=== PATIENT | female | born 1965 | race Two or more races ===

== ENCOUNTER 2020-03-19 10:55 | Outpatient (REF) | payer MEDICAID, SELFPAY ==
--- NOTE | 2020-03-19 10:57 | XR_ITS ---
EXAMINATION: XR SHOULDER, RIGHT CLINICAL INFORMATION: Right shoulder pain. COMPARISON: 11/30/2019 right shoulder radiographs. TECHNIQUE: AP external rotation, Grashey, scapular Y, and axillary views of the right shoulder. FINDINGS: The bones and soft tissues are normal. No fracture. Glenohumeral and acromioclavicular alignment is anatomic with normal joint space. No abnormal soft tissue calcifications. XR/XR shoulder RT min 2V IMPRESSION: Unremarkable right shoulder.
== END 2020-03-19 10:56 | disposition home or self-care (01) ==
LOC: HO.HOSX 10:55
PROVIDERS: Visit Provider Orthopaedic Surgery
DX: M75.41 Impingement syndrome of right shoulder (principal); M25.531 Pain in right wrist
CPT/HCPCS: 73030; 99202; J1040

== ENCOUNTER 2020-06-25 11:10 | Outpatient (REF) | payer MEDICAID, SELFPAY ==
--- NOTE | ~2020-06-25 | MM_ITS ---
EXAMINATION: MM DIAGNOSTIC DIGITAL BREAST TOMOSYNTHESIS, BILATERAL US DIAGNOSTIC ULTRASOUND BREAST, BILATERAL CLINICAL INFORMATION: Recent bilateral breast pain lasting 3-4 days, bilateral palpable fullness. No discharge. No focal palpable mass. Symptoms have subsequently resolved. No pain at time of appointment. The lifetime risk of breast cancer based on the Tyrer-Cuzick Model is 7%. COMPARISON: Mammography: 09/17/2017, 08/10/2016, 07/24/2015 TECHNIQUE: Digital breast tomosynthesis is performed in both the craniocaudal and mediolateral oblique views along with computer-aided detection (CAD). Synthesized 2D images are generated from the tomosynthesis. Ultrasound of each breast is performed targeted to all 4 quadrants. Grayscale imaging and color Doppler are performed without and with harmonics. FINDINGS: The breasts are heterogeneously dense, which may obscure small masses (ACR BI-RADS breast composition Category c). Parenchymal pattern is similar to prior exams. There is no developing density or interval mass or architectural abnormality. No skin thickening or coarsening of the Kasi's ligaments. No abnormal calcifications. No significant changes. Bilateral breast ultrasound shows no cystic or solid mass. There is no architectural abnormality or focal duct ectasia. No skin thickening or edema tracking in soft tissue planes. Results are discussed with the patient at time of visit, using an bakery supervisor. MM/MM tomosynthesis diagnostic BI IMPRESSION: 1. No mammographic evidence of malignancy or inflammatory changes. 2. Unremarkable bilateral breast ultrasound. ASSESSMENT: BI-RADS 1: Negative RECOMMENDATION: 1. Patient's recent breast symptoms should be managed based on the clinical impression. 2. Otherwise, routine annual screening mammography. This patient's information was entered into a reminder system with a target due date for their next mammogram.
== END 2020-06-25 11:11 | disposition home or self-care (01) ==
LOC: HO.MAMMO 11:10
PROVIDERS: Visit Provider Internal Medicine Geriatric Medicine
DX: N64.4 Mastodynia (principal)
CPT/HCPCS: 76642; 77062; 77066

== ENCOUNTER 2020-11-19 09:28 | Outpatient (REF) | payer MEDICAID, SELFPAY ==
--- NOTE | ~2020-11-19 | US_ITS ---
EXAMINATION: US ABDOMEN COMPLETE CLINICAL INFORMATION: Fatty liver. COMPARISON: None TECHNIQUE: Real-time imaging of the abdominal viscera. FINDINGS: PANCREAS: Normal. ABDOMINAL AORTA: The proximal, mid, and distal segments are normal in caliber. INFERIOR VENA CAVA: Visualized portions are normal. LIVER: Normal. The liver is normal in size. The liver contour is normal. Parenchymal echogenicity is normal. No focal hepatic lesion. There is no intrahepatic biliary duct dilatation seen. GALLBLADDER: Normal. The gallbladder is physiologically distended without evidence of stones, sludge, polyps, wall thickening or pericholecystic fluid. COMMON BILE DUCT: Normal in caliber measuring 0.33 cm in diameter. RIGHT KIDNEY: There is normal echogenicity. There is a simple-appearing cyst in the upper pole of the right kidney measuring 3.9 x 3.2 x 3.4 cm. There is a 2.5 cm cyst in the lower pole with some posterior calcifications, suspicious for milk of calcium. There is no hydronephrosis. The kidney measures 11.1 cm in maximum dimension. LEFT KIDNEY: Normal. No hydronephrosis. No renal calculi or focal parenchymal lesions. The kidney measures 11.3 cm in maximum dimension. SPLEEN: Upper normal in size. The spleen measures 13.2 cm in maximum dimension. FREE FLUID: None. US/US abdomen complete IMPRESSION: 1. Unremarkable liver with no evidence of fatty infiltration. 2. Simple-appearing 3.9 cm cyst in the upper pole of the right kidney (Bosniak 1). 2.5 cm cyst in the lower pole with posterior calcifications, suspicious for milk of calcium (Bosniak 2). Imaging followup is not needed.
== END 2020-11-19 09:29 | disposition home or self-care (01) ==
LOC: HO.US 09:28
PROVIDERS: PCP Internal Medicine Geriatric Medicine; Visit Provider Internal Medicine Geriatric Medicine
DX: K76.0 Fatty (change of) liver, not elsewhere classified (principal)
CPT/HCPCS: 76700

== ENCOUNTER 2021-12-30 15:27 | Outpatient (REF) | payer MEDICAID, SELFPAY ==
[2022-01-06 11:42] LABS: HPV mRNA E6/E7 rflx Not Detected (Not Detected)
== END 2021-12-30 15:28 | disposition home or self-care (01) ==
LOC: HO.LNP 15:27
PROVIDERS: Visit Provider Obstetrics & Gynecology
DX: Z01.419 Encounter for gynecological examination (general) (routine) without abnormal findings (principal); Z11.51 Encounter for screening for human papillomavirus (HPV); N95.0 Postmenopausal bleeding; R39.15 Urgency of urination
CPT/HCPCS: 87086; 87088; 87186; 87624; 88142; 99202

== ENCOUNTER 2022-01-16 14:10 | Outpatient (REF) | payer MEDICAID, SELFPAY ==
--- NOTE | ~2022-01-16 | US_ITS ---
EXAMINATION: US PELVIS CLINICAL INFORMATION: Postmenopausal bleeding COMPARISON: None TECHNIQUE: Transabdominal imaging was performed FINDINGS: Uterus: The uterus is anteverted and measures 6.2 x 3.4 x 4.5 cm. The double wall endometrial thickness is 6 mm. The uterus is smooth in contour and has normal myometrial echogenicity. No visible fibroid. Adnexa: Both ovaries are visualized. There is normal color flow to the adnexa. There is no ovarian torsion. There is no pelvic ascites or fluid collection. Right ovary measures 1.7 x 1.3 x 2.0 cm. Left ovary measures 2.4 x 1.2 x 2.0 cm. US/US pelvic and transvaginal IMPRESSION: Thickened endometrium measuring 6 mm in a postmenopausal patient. Recommend gynecologic consult and endometrial biopsy.
== END 2022-01-16 14:11 | disposition home or self-care (01) ==
LOC: HO.HMGCX 14:10
PROVIDERS: PCP Internal Medicine Geriatric Medicine; Visit Provider Obstetrics & Gynecology
DX: N95.0 Postmenopausal bleeding (principal)
CPT/HCPCS: 76830; 76856

== ENCOUNTER 2022-02-03 13:40 | Outpatient (REF) | payer MEDICAID, SELFPAY | END 2022-02-03 13:41 | disposition home or self-care (01) | LOC: HO.LNP 13:40 | PROVIDERS: PCP Internal Medicine Geriatric Medicine; Visit Provider Obstetrics & Gynecology | DX: N95.0 Postmenopausal bleeding (principal) | CPT/HCPCS: 58100; 88305 ==

== ENCOUNTER 2022-02-09 14:13 | Outpatient (REF) | payer MEDICAID, SELFPAY | END 2022-02-09 14:14 | disposition home or self-care (01) | LOC: HO.LNP 14:13 | PROVIDERS: PCP Internal Medicine Geriatric Medicine; Visit Provider Obstetrics & Gynecology | DX: N87.0 Mild cervical dysplasia (principal); N95.0 Postmenopausal bleeding | CPT/HCPCS: 57454; 58100; 58110; 88305; 88341; 88342; 88360 ==

== ENCOUNTER → 2022-02-23 13:06 | Outpatient (BNVA) | payer MEDICAID, SELFPAY | PROVIDERS: PCP Internal Medicine Geriatric Medicine; Visit Provider Obstetrics & Gynecology | DX: N87.0 Mild cervical dysplasia (principal); N95.0 Postmenopausal bleeding | CPT/HCPCS: 99212 ==

== ENCOUNTER 2022-03-06 09:40 | Day surgery (SDC) | payer MEDICAID, SELFPAY ==
[2022-03-02 11:33] VITALS: BMI 33.3
--- NOTE | 2022-03-05 09:15 | HO.ANESPROP2 ---
Documented by User: Janny Tripathi NP 03/05/22 09:15 HPI - Anesthesia Eval Consult details Narrative: 56yo F for D&C Hysteroscopy,poss polypectomy/myomectomy PMFSH Active Problems Active Problems: All Active Problems (Updated 03/02/22 @ 11:30 by Cassandra Huston RN) Rotator cuff impingement syndrome of right shoulder (Acute) Postmenopausal bleeding (Acute) Urinary urgency (Acute) Dysplasia of cervix, low grade (OLIVER 1) (Acute) Past Medical History Medical History Asthma Elevated cholesterol Hyperglycemia Hypertension Rotator cuff impingement syndrome of left shoulder Seizure Type 2 diabetes mellitus Surgical History Surgical History Gastric bypass status for obesity H/O tubal ligation Hx of section Social History Social History Are you a primary clinical care coordinator to a significant other at home: No Do you presently have visiting nurse or other home services: No Patient Tobacco Use Status: Never used Tobacco Use of substances other than those prescribed or required for medical reasons: No Have you been hit, kicked, punched, or otherwise hurt by someone within the past year? 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 Allergies Allergy/AdvReac Type Severity Reaction Status Date / Time No Known Allergies Allergy Verified 03/06/22 09:53 Home Medications Medication Instructions Recorded Confirmed Last Taken Type atorvastatin 20 mg tablet 20 mg PO DAILY 02/23/20 03/02/22 Unknown History carbamazepine 300 mg 300 mg PO BID 02/23/20 03/06/22 03/06/22 08:00 History capsule,extended release [id number] cyclobenzaprine 10 mg tablet 10 mg PO BEDTIME 02/23/20 03/02/22 Unknown History hydroxyzine HCl 25 mg tablet 25 mg PO BEDTIME 02/23/20 03/02/22 Unknown History metformin 500 mg tablet 500 mg PO DAILY 02/23/20 03/06/22 03/05/22 History cholecalciferol (vitamin D3) 50 1 cap PO DAILY 03/02/22 03/02/22 Unknown History mcg (2,000 unit) capsule dulaglutide 1.5 mg/0.5 mL 1.5 mg subcut QWEEK 03/02/22 03/06/22 03/02/22 History subcutaneous pen injector (Trulicity) losartan 25 mg tablet 1 tab PO DAILY blood pressure 03/02/22 03/06/22 03/05/22 History Exam Exam Date and Time: March 05, 2022 0915 Height,Weight and Vital Signs: Height 5 ft 2 in Weight 82.554 kg Assessment and Plan Assessment Anesthesia Assessment: Chart Reviewed Documented by User: Yolanda Helms MD 03/06/22 10:08 [facility] Past Medical History Medical History Asthma Elevated cholesterol Hyperglycemia Hypertension Rotator cuff impingement syndrome of left shoulder Seizure Type 2 diabetes mellitus Surgical History Surgical History Gastric bypass status for obesity H/O tubal ligation Hx of section History of Problems with Anesthesia: No Social History Social History Are you a primary clinical care coordinator to a significant other at home: No Do you presently have visiting nurse or other home services: No Patient Tobacco Use Status: Never used Tobacco Use of substances other than those prescribed or required for medical reasons: No Have you been hit, kicked, punched, or otherwise hurt by someone within the past year? 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 Allergies Allergy/AdvReac Type Severity Reaction Status Date / Time No Known Allergies Allergy Verified 03/06/22 09:53 Home Medications Medication Instructions Recorded Confirmed Last Taken Type atorvastatin 20 mg tablet 20 mg PO DAILY 02/23/20 03/02/22 Unknown History carbamazepine 300 mg 300 mg PO BID 02/23/20 03/06/22 03/06/22 08:00 History capsule,extended release [id number] cyclobenzaprine 10 mg tablet 10 mg PO BEDTIME 02/23/20 03/02/22 Unknown History hydroxyzine HCl 25 mg tablet 25 mg PO BEDTIME 02/23/20 03/02/22 Unknown History metformin 500 mg tablet 500 mg PO DAILY 02/23/20 03/06/22 03/05/22 History cholecalciferol (vitamin D3) 50 1 cap PO DAILY 03/02/22 03/02/22 Unknown History mcg (2,000 unit) capsule dulaglutide 1.5 mg/0.5 mL 1.5 mg subcut QWEEK 03/02/22 03/06/22 03/02/22 History subcutaneous pen injector (Trulicity) losartan 25 mg tablet 1 tab PO DAILY blood pressure 03/02/22 03/06/22 03/05/22 History Exam Airway Mallampati Class: II TM Dist: >3cm Neck ROM: Full Loose/Missing/Broken Teeth: No Heart: RRR Lungs: CTA Assessment and Plan Assessment Anesthesia Assessment: Anesthesia Plan Discussed Final Anesthetic Review History of Problems with Anesthesia: No NPO: Yes ASA Class: II Final Preanesthetic Review: Meds/Allgs Chart Reviewed, Consent Obtained/Reviewed and Anes Risks/Benef Reviewed Patient Risk: Low Procedure Risk: Low Anesthetic Plan Anesthetic Plan: GA Disposition: Standard PACU
[2022-03-06] VITALS (8 sets, daily range): BP systolic 137–154; BP diastolic 85–99; PULSE 77–85; RESP 16; TEMP 36.6; O2SAT 93–98
[2022-03-06 10:05] LABS: Glucose, Whole Blood 109 mg/dL (60-115)
[2022-03-06] MEDS: Lactated Ringers 1,000 ML 100 ML IVCONT (10:07)
--- NOTE | 2022-03-06 11:04 | MHC.SHP ---
Pre-Procedural Eval Section A Date of Service: 03/06/22 The patient is an INPATIENT: No Changes since office visit: No Cold of Flu in the past 2 weeks, No New Medical Problems, No Changes in Medication and No Patient answered all questions The History & Physical has been completed within 30 days and I have reviewed it.: Yes Section B Chief Complaint: Postmenopausal bleeding,Mild cervical dysplasia Allergies: Allergies Allergy/AdvReac Type Severity Reaction Status Date / Time No Known Allergies Allergy Verified 03/06/22 09:53 Plan Diagnosis/Plan: Unchanged I have reviewed the history and physical and performed a pertinent physical examination on my patient. No changes have occurred unless specified. Time Spent With Patient Time: Total time managing care of this patient today ____ minutes.
--- NOTE | 2022-03-06 11:24 | P.BOP_ITS ---
Brief Operative Note Date of Service: 03/06/22 Pre-op diagnosis: Post Menopaual bleeding Post-op diagnosis: same Procedure: Hysteroscopy D&C Surgeon: Saul Dobbins MD Anesthesia: GLMA Was an Financial Services Professional used for this Procedure?: No Estimated blood loss (mL): 0 Pathology: other (Endometrial Scrapping) Condition: stable Disposition: PACU
--- NOTE | 2022-03-06 11:24 | W.PM.OPN ---
Operative Note Operative Note Date of Service: 03/06/22 Narrative: Preop Diagnosis: Post Menopausal bleeding Operation: Diagnostic Hysteroscopy, Dilataion & Curettage Post Op Diagnosis: Normal endometrial cavity QBL: Minimal Anesthesia: GLMA Surgeon: Saul Dobbins MD [employer] Consultant: None Complication: None Pathology: Endometrial Scrapings Procedure: The patient was put in the dorsal lithotomy position, scrubbed, and draped in the usual manner. A sterile speculum was inserted in the patient's vagina. The anterior lip of the cervix was grasped with a single tooth tenaculum. The cervix was dilated up to 5 mm, then the scope was inserted in the patient's uterus. Inspection revealed Normal endometrial cavity. The Myosure Reach device was used; the scope was removed from the endometrial cavity , sharp curettings was carried on with minimal to moderate amount of tissues retrieved. At the end of the procedure, all instruments were taken out of the patient uterine and vaginal cavity. The single tooth tenaculum was removed and homeostasis was assured using pressure,. The patient tolerated the procedure well and was transferred to the PACU in a stable condition.
== END 2022-03-06 13:04 | disposition home or self-care (01) ==
PROVIDERS: PCP Internal Medicine Geriatric Medicine; Visit Provider Obstetrics & Gynecology
PROC: 0UDB8ZZ Extraction of Endometrium, Via Natural or Artificial Opening Endoscopic (ICD-10-PCS; CPT 58558; principal; 2022-03-06 11:40)
DX: N95.0 Postmenopausal bleeding (principal); N87.0 Mild cervical dysplasia; R56.9 Unspecified convulsions; J45.909 Unspecified asthma, uncomplicated; I10 Essential (primary) hypertension; E11.9 Type 2 diabetes mellitus without complications; Z79.85 Long-term (current) use of injectable non-insulin antidiabetic drugs; Z79.899 Other long term (current) drug therapy; Z98.84 Bariatric surgery status; Z98.51 Tubal ligation status
CPT/HCPCS: 58558; 82947; 88305; J1100; J1885; J2250; J2405; J3010

== ENCOUNTER → 2022-03-25 12:39 | Outpatient (BNVA) | payer MEDICAID, SELFPAY | PROVIDERS: PCP Internal Medicine Geriatric Medicine; Visit Provider Obstetrics & Gynecology | DX: N95.0 Postmenopausal bleeding (principal); Z98.890 Other specified postprocedural states | CPT/HCPCS: 99212 ==

== ENCOUNTER 2023-01-08 10:48 | Outpatient (REF) | payer MEDICAID, SELFPAY ==
[2023-01-08 12:27] LABS: Anion Gap 13 (12-20); Blood Urea Nitrogen 13 mg/dL (9-16); Calcium 10.4 mg/dL (8.4-10.2); Carbon Dioxide 27 mmol/L (22-29); Chloride 105 mmol/L (96-108); Estimated Glomerular Filt Rate > 60; Glucose Random 85 mg/dL (60-115); Potassium 4.5 mmol/L (3.3-5.1); Sodium 140 mmol/L (135-145)
[2023-01-08 13:05] LABS: Creatinine Urine 76.27 mg/dL; Microalbumin Urine < 5.0 mg/L
[2023-01-10 20:13] LABS: TS Negative Control Passed; TS Panel A 0; TS Panel B 0; TS Positive Control Passed; TSpotTB Negative (Negative)
== END 2023-01-08 10:49 | disposition home or self-care (01) ==
LOC: HO.HHCL 10:48
PROVIDERS: Visit Provider Internal Medicine Geriatric Medicine
DX: Z11.1 Encounter for screening for respiratory tuberculosis (principal); E11.69 Type 2 diabetes mellitus with other specified complication
CPT/HCPCS: 36415; 80048; 82043; 82570; 86481

== ENCOUNTER 2023-05-17 10:17 | Outpatient (AMB) | payer MEDICAID, SELFPAY ==
--- NOTE | 2023-05-17 10:28 | A.OFFVIS_ITS ---
Intake Vital Signs 05/17/23 10:29 Height 5 ft 2 in Weight 182 lb BMI 33.3 BP 110/70 Intake Visit Reasons: Urine dip Haulage Engine Operator Required: Yes Haulage Engine Operator Name: Danielle MULTANI Information Interpreted: non-clinical & clinical Stereo Compiler: Stereo Compiler Present (Danielle MULTANI) Accompanied by: Self / Same As Patient Allergies No Known Allergies Allergy (Verified 05/17/23 10:31) Post menopausal: Yes Patient : No HPI HPI Comments History of Present Illness0 Details Presenting for co testing and repeat urine dip. Microscopic hematuria was identified, urine culture was negative . OLIVER 1 was diagnosed on EMB pathol ogy, this was followed with colpo/biopsy/ECC which was negative. Last co testing was in 01/10 was negative. The patient is doing well with no vaginal bleeding. 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 Female Reproductive History Menstrual Age of Menarche: 11 Review of Systems Const All systems reviewed & are unremarkable except as noted in HPI and below Card Reports as per HPI Resp Reports as per HPI GI Reports as per HPI and Reports no additional complaints Reports as per HPI Physical Exam Vital Signs: Last Vital Signs BP 110/70 05/17/23 10:29 BMI result Body Mass Index 33.3 Const General: cooperative, healthy appearing and comfortable Chest Chest palpation & inspection: normal inspection of the chest and normal palpation of entire chest wall Breast/axilla inspection: normal inspection of the breasts and normal inspection of the axillae Breast/axilla palpation: normal palpation of the breasts, normal palpation of the axillae and no axillary lymphadenopathy Resp Effort & Inspection: normal respiratory effort Auscultation: clear to auscultation bilaterally Percussion: percussion normal Cardio Palpation: normal PMI Rate: regular rate Rhythm: regular rhythm Heart sounds: no murmurs and no rubs Peripheral pulses: Peripheral pulses 2+ throughout GI Inspection: Yes normal to inspection Palpation (GI): Soft to palpation, nontender, no guarding, not rigid and No hepatosplenomegaly present Percussion: Yes normal to percussion Auscultation: normal bowel sounds Rectal Exam - Female: deferred General: Yes bladder normal to palpation External Female Exam: No lesion Speculum Exam - Vagina: normal appearance of the vagina, normal palpation, normal vaginal discharge and not erythematous Speculum Exam - Cervix: normal appearance of the cervix and normal palpation Bimanual exam- vagina & uterus: normal bimanual exam, normal palpation, uterine size normal, bladder normal to palpation, consistency normal and normal palpation Bimanual Exam- Adnexa, other: normal adnexae, no masses and no tenderness Assessment & Plan Assessment & Plan (1) Dysplasia of cervix, low grade (OLIVER 1): Comment: On EMB/ECC in 02/10 , normal co testing Code(s): N87.0 - Mild cervical dysplasia Plan: Co testing repeated preop (2) Well woman exam: Code(s): Z01.419 - Encounter for gynecological examination (general) (routine) without abnormal findings Plan: Co testing done. Counseled the patient about the recommended dietary allowance of 1200 mg of Calcium & 600 IU of vitamin D. Mammogram ordered. The patient was referred to GI for screening colonoscopy . The patient was instructed to perform monthly self-breast exams and schedule annual exam in a year. All questions answered and the patient verbalized understanding. (3) Microscopic hematuria: Code(s): R31.29 - Other microscopic hematuria Plan: Urine dip repeated showed no evidence of microscopic hematuria, the patient was reassured. Orders: Orders MM tomosynthesis screening BI Today Z12.31 - Encounter for screening mammogram for malignant neoplasm of breast Referrals Gastroenterology Referral Z12.11 - Encounter for screening for malignant neoplasm of colon Coding Level of Care Code Est Pt Prev Care 40-64y(06722) Diagnoses Dysplasia of cervix, low grade (OLIVER 1) N87.0 Well woman exam Z01.419 Microscopic hematuria R31.29
[2023-05-17 10:29] VITALS: BP 110/70; BMI 33.3
== END 2023-05-17 11:16 | disposition home or self-care (01) ==
LOC: HO.HWS 10:17
PROVIDERS: PCP Internal Medicine Geriatric Medicine; Visit Provider Obstetrics & Gynecology
DX: Z01.419 Encounter for gynecological examination (general) (routine) without abnormal findings (principal); N87.0 Mild cervical dysplasia; R31.29 Other microscopic hematuria
CPT/HCPCS: 99396

== ENCOUNTER 2023-05-17 10:17 | Outpatient (REF) | payer MEDICAID, SELFPAY ==
[2023-05-23 11:04] LABS: HPV mRNA E6/E7 rflx Not Detected (Not Detected)
== END 2023-05-17 10:18 | disposition home or self-care (01) ==
LOC: HO.LNP 10:17
PROVIDERS: PCP Internal Medicine Geriatric Medicine; Visit Provider Obstetrics & Gynecology
DX: Z01.419 Encounter for gynecological examination (general) (routine) without abnormal findings (principal); Z11.51 Encounter for screening for human papillomavirus (HPV); N87.0 Mild cervical dysplasia; R31.29 Other microscopic hematuria
CPT/HCPCS: 81002; 87624; 88142; 99396

== ENCOUNTER 2023-06-18 09:55 | Outpatient (REF) | payer MEDICAID, SELFPAY | END 2023-06-18 09:56 | disposition home or self-care (01) | LOC: HO.MAMMO 09:55 | PROVIDERS: PCP Internal Medicine Geriatric Medicine; Visit Provider Obstetrics & Gynecology | DX: Z12.31 Encounter for screening mammogram for malignant neoplasm of breast (principal) | CPT/HCPCS: 77063; 77067 ==

== ENCOUNTER → 2023-06-18 10:00 | Outpatient (BNV) | payer MEDICAID, SELFPAY | PROVIDERS: PCP Internal Medicine Geriatric Medicine; Visit Provider Radiology Diagnostic Radiology | DX: Z12.31 Encounter for screening mammogram for malignant neoplasm of breast (principal) | CPT/HCPCS: 77063; 77067 ==

== ENCOUNTER 2023-06-29 10:33 | Outpatient (REF) | payer MEDICAID, SELFPAY ==
[2023-06-29 12:39] LABS: Alanine Aminotransferase 25 U/L (0-31); Albumin Level 4.1 g/dL (3.5-5.0); Alkaline Phosphatase 81 U/L (39-117); Anion Gap 12 (12-20); Aspartate Amino Transferase 24 U/L (5-31); Bilirubin Total 0.4 mg/dL (0.0-1.0); Blood Urea Nitrogen 13 mg/dL (9-16); Calcium 9.7 mg/dL (8.4-10.2); Carbon Dioxide 27 mmol/L (22-29); Chloride 108 mmol/L (96-108); Cholesterol 236 mg/dL (<200); Estimated Glomerular Filt Rate > 60; Glucose Random 85 mg/dL (60-115); HDL Cholesterol 48 mg/dL (>40); LDL Cholesterol Calculated 162 mg/dL (<100); Potassium 4.5 mmol/L (3.3-5.1); Sodium 142 mmol/L (135-145); Total Protein 7.8 g/dL (6.5-8.0); Triglycerides 134 mg/dL (<150)
[2023-06-29 13:05] LABS: Creatinine Urine 85.72 mg/dL; Microalbumin Urine < 5.0 mg/L
== END 2023-06-29 10:34 | disposition home or self-care (01) ==
LOC: HO.LAB 10:33
PROVIDERS: PCP Internal Medicine Geriatric Medicine; Visit Provider Internal Medicine Geriatric Medicine
DX: E11.69 Type 2 diabetes mellitus with other specified complication (principal)
CPT/HCPCS: 36415; 80053; 80061; 82043; 82570

== ENCOUNTER 2023-12-22 12:17 | Outpatient (REF) | payer MEDICAID, SELFPAY ==
[2023-12-25 00:34] LABS: TS Negative Control Passed; TS Panel A 0; TS Panel B 0; TS Positive Control Passed; TSpotTB Negative (Negative)
== END 2023-12-22 12:18 | disposition home or self-care (01) ==
LOC: HO.HHCL 12:17
PROVIDERS: Visit Provider Internal Medicine Geriatric Medicine
DX: Z11.1 Encounter for screening for respiratory tuberculosis (principal)
CPT/HCPCS: 36415; 86481

== ENCOUNTER 2024-01-04 14:56 | Outpatient (REF) | payer MEDICAID, SELFPAY ==
--- NOTE | ~2024-01-04 | XR_ITS ---
EXAMINATION: XR CHEST CLINICAL INFORMATION: Cough. COMPARISON: October 10, 2018. TECHNIQUE: 2 views of the chest were obtained. FINDINGS: Small, patchy right upper lobe density suggests atelectasis, fibrotic streaks, and/or infiltrate, not evident in 2019. The left lung appears clear. No effusion or pneumothorax is seen. The cardiovascular structures and mediastinum appear unremarkable. Mildly elevated right hemidiaphragm, unchanged. Mild degenerative changes of the spine. Surgical clips project over the anterior upper abdomen to the left of midline, unchanged. XR/XR chest 2V IMPRESSION: Findings as above. Electronically signed by: Travis Foreman MD 01/04/2024 05:01 PM EDT
== END 2024-01-04 14:57 | disposition home or self-care (01) ==
LOC: HO.HHCX 14:56
PROVIDERS: Visit Provider Internal Medicine
DX: R05.9 Cough, unspecified (principal)
CPT/HCPCS: 71046

== ENCOUNTER 2024-02-23 10:46 | Outpatient (REF) | payer MEDICAID, SELFPAY ==
--- NOTE | ~2024-02-23 | XR_ITS ---
EXAMINATION: XR CHEST CLINICAL INFORMATION: Previously described upper lobe infiltrate, ensure resolution. COMPARISON: Most recent chest radiograph dated 01/04/2024. TECHNIQUE: 2 views of the chest were obtained. FINDINGS: Resolution of previously seen right upper lobe airspace opacity. No new airspace consolidation. No pleural effusion or pneumothorax. Stable cardiomediastinal silhouette. Right upper quadrant surgical clips. XR/XR chest 2V IMPRESSION: Resolution of previously seen right upper lobe airspace opacity. Electronically signed by: Brett Hall MD 02/24/2024 11:37 AM [facility]
== END 2024-02-23 10:47 | disposition home or self-care (01) ==
LOC: HO.HHCX 10:46
PROVIDERS: Visit Provider Internal Medicine
DX: J45.21 Mild intermittent asthma with (acute) exacerbation (principal)
CPT/HCPCS: 71046

== ENCOUNTER → 2024-04-11 10:36 | Outpatient (REF) | payer MEDICAID, SELFPAY | LOC: HO.SL 10:36 | PROVIDERS: PCP Internal Medicine Geriatric Medicine; Visit Provider Internal Medicine Geriatric Medicine | DX: R06.83 Snoring (principal); R40.0 Somnolence; G47.10 Hypersomnia, unspecified | CPT/HCPCS: 95806 ==

== ENCOUNTER → 2024-04-11 19:00 | Outpatient (BNV) | payer MEDICAID, SELFPAY | PROVIDERS: PCP Internal Medicine Geriatric Medicine; Visit Provider Internal Medicine | DX: R06.83 Snoring (principal); G47.10 Hypersomnia, unspecified | CPT/HCPCS: 95806 ==

== ENCOUNTER 2024-04-26 10:19 | Outpatient (REF) | payer MEDICAID, SELFPAY ==
[2024-04-26 10:57] LABS: MANUAL DIFF FLAG NO
[2024-04-26 11:02] LABS: Basophils Absolute Auto 0.1 X10*3/uL (0.0-0.2); Basophils Percent Auto 0.7 % (0-2); Eosinophils Absolute Auto 0.3 X10*3/uL (0.0-0.4); Hematocrit 41.1 % (37.0-47.0); Imm Gran Abs Auto 0.02 X10*3/uL (0.00-0.03); Imm Gran Pct Auto 0.3 % (0.0-0.4); Lymphocytes Absolute Auto 2.6 X10*3/uL (1.2-4.9); Lymphocytes Percent Auto 34.4 % (20-40); Mean Corpuscular HGB Conc 34.1 g/dl (31.0-35.0); Mean Corpuscular Hemoglobin 28.1 pg (27.0-33.0); Mean Corpuscular Volume 82.5 fL (80.0-98.0); Mean Platelet Volume 10.2 fL (9.4-12.3); Monocytes Absolute Auto 0.4 X10*3/uL (0.1-1.2); Monocytes Percent Auto 5.8 % (2-11); Neutrophils Absolute Auto 4.1 x10*3/uL (2.0-8.3); Neutrophils Percent Auto 54.8 % (45-73); Platelet Count 281 X10*3/uL (160-400); Red Blood Count 4.98 X10*6/uL (4.20-5.50); Red Cell Distribution Width 13.2 % (11.0-16.0); White Blood Count 7.5 X10*3/uL (4.8-10.8)
--- OUTSIDE RECORDS SUMMARY | 2024-04-26 11:16 | XMS_ITS | Encounter Summary ---
Author Organization [employer] Address [address] [place] [address] Care Team Providers Care Administration Clerk Name Role Phone Name, Fernandez BROWN Primary Care Provider Reason for Visit * Reason Onset Date Comments feb recalls 03/30/2024 Encounter Details Date Type Department Care Team ([facility] st Contact Info) Description 03/30/2024 Telephone [facility] [address] [place] [address] Arturo Osborne MA apr recalls Social History Tobacco Use Types Packs/Day Years Used Date Smoking Tobacco: Never Passive Smoke Exposure: Never Smokeless Tobacco: Never Alcohol Use Standard Drinks/Week Comments Never 0 (1 standard drink = 0.6 oz pur e alcohol) occasional Depression Answer Date Recorded Patient Health Questionnaire-9 Score 5 09/04/2022 Housing Stability Answer Date Recorded What is your housing situation today? I have bobby alcantar 01/05/[address] you li ve. Do you have problems with any of the following? None of the above 01/05/2023 Food Insecurity Answer Date Recorded Within the past 12 months, y ou worried that your food would run out before you got money to buy more: Never True 01/05/2023 Within the past 12 months,th e food you bought just didn't last and you didn't have enough money to get more: Never True Transportation Answer Date Recorded In the past 12 months, has l ack of transportation kept you from medical appts, meetings, work or from getting things needed for daily living? No 01/05/2023 Utilities Answer Date Recorded In the past 12 months, has t he electric, gas, oil or water company threatened to shut off services in your home? No 01/05/2023 Depression Answer Date Recorded Patient Health Questionnaire-2 Score 1 12/22/2023 Comments Unknown Sex and Gender Information Value Date Recorded Sex Assigned at Female 01/19/2022 10:29 AM EDT Legal Sex Female 10:29 AM EDT Gender Identity Female 01/19/2022 10:29 AM EDT Sexual Orientation Straight 01/19/2022 10 :29 AM EDT documented as of this encounter Miscellaneous Notes * Telephone Encounter - Arturo Osborne MA - 03/30/2024 11:46 AM EST T/C placed to pt. Scheduled recall. Pt agrees with plan. Reminder letter sent . documented in this encounter Plan of Treatment Upcoming Encounters Date Type Department Care Team (Late st Contact Info) Description 06/09/2024 11:30 AM EDT Office Visit [facility] [address] [place] [address] Name, MD Fernandez [address] [place] [address] documented as of this encounter Visit Diagnoses Not on filedocumented in this encounter Additional Health Concerns Assessment Noted Time PHQ-9 Depression Total Score: 5 09/05/19 23 10:02 AM EDT documented as of this encounter Care Teams Administration Clerk Relationship Specialty Start Date End Date NameFernandez MD [address] [place] [id number] PCP - General Family Medicine 07/19/15 documented as of this encounter
--- OUTSIDE RECORDS SUMMARY | 2024-04-26 11:16 | XMS_ITS | Encounter Summary ---
Author Organization [facility] Address [address] [place] [address] Care Team Providers Care Ambulance Assistant Name Role Phone Name, Fernandez BROWN Primary Care Provider Unavailabl e Encounter Details Date Type Department Care Team Description 04/11/2010 Manager Lean Report Medical Records [address] [place] [address] Kylah Roland NP Social History Tobacco Use Types Packs/Day Years Used Date Smoking Tobacco: Never Alcohol Use Standard Drinks/Week Comments No 0 (1 standard drink = 0.6 oz pur e alcohol) Sex Assigned at Date Recorded Not on file documented as of this encounter Plan of Treatment Not on file documented as of this encounter Visit Diagnoses Not on filedocumented in this encounter Care Teams Ambulance Assistant Relationship Specialty Start Date End Date Name, MD Fernandez PCP - General 10/10/09 documented as of this encounter
--- OUTSIDE RECORDS SUMMARY | 2024-04-26 11:16 | XMS_ITS | Encounter Summary ---
Author Organization [facility] Address [address] [place] [address] Care Team Providers Care Supervisor Roving Department Name Role Phone Name, Fernandez BROWN Primary Care Provider Unavailabl e Encounter Details Date Type Department Care Team Description 04/08/2011 Toll Test Desk Worker Report Medical Records [address] [place] [address] Kylah Roland NP Social History Tobacco Use [...] on filedocumented in this encounter Care Teams Supervisor Roving Department Relationship Specialty Start Date End Date Name, MD Fernandez PCP - General 10/10/09 documented as of this encounter
--- OUTSIDE RECORDS SUMMARY | 2024-04-26 11:16 | XMS_ITS | Encounter Summary ---
Author Organization [employer] [facility] Address [address] [facility] 7t [place] [address] Care Team Providers Care Crusher Assembler Name Role Phone Name, Fernandez BROWN Primary Care Provider [phone] Encounter Details Date Type Department Care Team (Late Contact Info) Description 12/15/2022 Orders Only [facility] [address] [place] [address] Provider, MD Lizette Social History Tobacco Use Types Packs/Day Years Used Date Smoking Tobacco: Never Passive Smoke Exposure: Never Smokeless Tobacco: Never Alcohol Use Standard Drinks/Week Comments Never 0 (1 standard drink = 0.6 oz pur e alcohol) occasional Depression Answer Date Recorded Patient Health Questionnaire-9 Score 5 09/04/2022 Depression Answer Date Recorded Patient Health Questionnaire-2 Score 2 09/04/2022 Comments Unknown Sex and Gender Information Value Date Recorded Sex Assigned at Female 01/19/2022 10:29 AM EDT Legal Sex Female 10:29 AM EDT Gender Identity Female 01/19/2022 10:29 AM EDT Sexual Orientation Straight 01/19/2022 10 :29 AM EDT documented as of this encounter Plan of Treatment Upcoming Encounters Date Type Department Care Team (Late st Contact Info) Description 06/09/2024 11:30 AM EDT Office Visit [facility] [address] [place] [address] Name, MD Fernandez [address] [place] [address] documented as of this encounter Procedures Procedure Name Priority Date/Time Associated Diagnosis Comments HM PAP/HPV Routine 12/30/2021 documented in this encounter Results * Hm Pap Smear (12/30/2021) us Historical Provider HEALTH MAINTENANCE Final Result documented in this encounter Visit Diagnoses Not on filedocumented in this encounter Additional Health Concerns Assessment Noted Time PHQ-9 Depression Total Score: 5 09/05/19 23 10:02 AM EDT documented as of this encounter Care Teams Crusher Assembler Relationship Specialty Start Date End Date Name, MD Fernandez [address] [place] [address] PCP - General Family Medicine 07/19/15 documented as of this encounter
--- OUTSIDE RECORDS SUMMARY | 2024-04-26 11:16 | XMS_ITS | Encounter Summary ---
Author Organization [facility] Address [address] [place] [address] Care Team Providers Care Brim Blocker Name Role Phone Fernandez Stafford MD Primary Care Provider Unavailabl e Encounter Details Date Type Department Care Team Description 10/22/2014 Pt. Non Urgent Medic al Question Adult Medicine [address] [address] Fernandez Stafford MD Social History Tobacco Use Types Packs/Day Years Used Date Smoking Tobacco: Never Smokeless Tobacco: Never Alcohol Use Standard Drinks/Week Comments No 0 (1 standard drink = 0.6 oz pur e alcohol) Sex Assigned at Date Recorded Not on file documented as of this encounter Progress Notes * Yas Lagos M.A. - 10/22/2014 2:12 PM EDTFrom: Edwina Toy To: Fernandez Stafford MD Sent: 10/22/2014 2:04 PM EDT Subject: Diabete ,la presente es para gabriel si me puede gabriel ,parece que la diabetes ya me llego ,cuando me tomola az??car en ayuna sale candelario lesa,necesito vincent consulta,por favor si puede por la tarde,muy apreciada,kai anticipadas. documented in this encounter Plan of Treatment Not on file documented as of this encounter Visit Diagnoses Not on filedocumented in this encounter Care Teams Brim Blocker Relationship Specialty Start Date End Date Fernandez Stafford MD PCP - General 10/10/09 documented as of this encounter
--- OUTSIDE RECORDS SUMMARY | 2024-04-26 11:16 | XMS_ITS | Encounter Summary ---
Author Organization [employer] Address [address] [facility] 7t [place] [address] Care Team Providers Care Senior Quality Engineer Name Role Phone Name, Fernandez BROWN Primary Care Provider [phone] Reason for Visit * Reason Comments Med Refill Encounter Details Date Type Department Care Team ([facility] st Contact Info) Description 03/25/2024 Refill [facility] [address] [place], [place] [phone] Name, MD Fernandez [address] [place], [place] [phone] Hypercholesterolemia Social History Tobacco Use Types Packs/Day Years [...] Description 06/09/2024 11:30 AM EDT Office Visit [facility] [address] [place] [address] Name, MD Fernandez [address] [place] [address] documented as of this encounter Visit Diagnoses Diagnosis Hypercholesterolemia Pure hypercholesterolemia documented in this encounter Additional Health Concerns Assessment Noted Time PHQ-9 Depression Total Score: 5 09/05/19 23 10:02 AM EDT documented as of this encounter Care Teams Senior Quality Engineer Relationship Specialty Start Date End Date Name, MD Fernandez [address] [place] [address] PCP - General Family Medicine 07/19/15 documented as of this encounter
--- OUTSIDE RECORDS SUMMARY | 2024-04-26 11:16 | XMS_ITS | Encounter Summary ---
Author Organization [employer] [facility] Address [address] [facility] 7t [place] [address] Care Team Providers Care Last Trimmer Name Role Phone Name, Fernandez BROWN Primary Care Provider [phone] Reason for Visit * Reason Onset Date Comments Med Refill 10/08/2023 Encounter Details Date Type Department Care Team ([facility] st Contact Info) Description 10/08/2023 Refill [facility] [address] [place], [place] [phone] Name, MD Fernandez [address] [place] [address] Social History Tobacco Use Types Packs/Day Years [...] Description 06/09/2024 11:30 AM EDT Office Visit [facility] [address] [place] [address] NameFernandez MD [address] [place] [address] documented as of this encounter Visit Diagnoses Not on filedocumented in this encounter Additional Health Concerns Assessment Noted Time PHQ-9 Depression Total Score: 5 09/05/19 23 10:02 AM EDT documented as of this encounter Care Teams Last Trimmer Relationship Specialty Start Date End Date Name, MD Fernandez [address] [place] [id number] PCP - General Family Medicine 07/19/15 documented as of this encounter
--- OUTSIDE RECORDS SUMMARY | 2024-04-26 11:16 | XMS_ITS | Encounter Summary ---
Author Organization [facility] Address [address] [place] [address] Care Team Providers Care Filler Operator Name Role Phone Name, Fernandez BROWN Primary Care Provider Unavailabl e Reason for Referral * Specialist (Urgent) - Authorized/Booked Specialty Diagnoses / Procedures Referred By Contac t Referred To Contact General Surgery Diagnoses Abnormal mammogram Procedures REFERRAL TO GENERAL SURGERY Jose Cadena MD [address] [place] [address] Gen Surg/[place] [address] [place] [address] Referral ID Status Reason Start Date Expiration Date V isits Requested Visits Authorized NOT REQUIRED Authorized/ Booked 12/18/2009 12/18/2010 1 1 Encounter Details Date Type Department Care Team Description 12/18/2009 Orders Only Adult Medicine B - [address] [address] Jose Cadena MD Abnormal Mammogram (Primary Dx) Social History Tobacco Use Types Packs/Day Years Used Date Smoking Tobacco: Never Alcohol Use Standard Drinks/Week Comments No 0 (1 standard drink = 0.6 oz pur e alcohol) Sex Assigned at Date Recorded Not on file documented as of this encounter Plan of Treatment Not on file documented as of this encounter Visit Diagnoses Diagnosis Abnormal mammogram- Primary Abnormal mammogram, unspecified documented in this encounter Care Teams Filler Operator Relationship Specialty Start Date End Date Name, MD Fernandez PCP - General 10/10/09 documented as of this encounter
--- OUTSIDE RECORDS SUMMARY | 2024-04-26 11:16 | XMS_ITS | Encounter Summary ---
Author Organization [employer] [facility] Address [address] [facility] 7t [place] [address] Care Team Providers Care Ball Rolling Machine Operator Name Role Phone Name, Fernandez BROWN Primary Care Provider [phone] Reason for Visit * Reason Comments Med Refill Encounter Details Date Type Department Care Team ([facility] st Contact Info) Description 01/22/2023 Refill [facility] [address] [place], [place] [phone] Abigail Sullivan MD [address] [place], [place] [phone] Hypertension, unspecified type Social History Tobacco Use Types Packs/Day Years [...] Office Visit [facility] [address] [place] [address] Name, MD Fernandez [address] [place] [address] documented as of this encounter Visit Diagnoses Diagnosis Hypertension, unspecified type documented in this encounter Additional Health Concerns Assessment Noted Time PHQ-9 Depression Total Score: 5 09/05/19 23 10:02 AM EDT documented as of this encounter Care Teams Ball Rolling Machine Operator Relationship Specialty Start Date End Date NameFernandez MD [address] [place] [address] PCP - General Family Medicine 07/19/15 documented as of this encounter
--- OUTSIDE RECORDS SUMMARY | 2024-04-26 11:16 | XMS_ITS | Encounter Summary ---
Author Organization [facility] Address [address] [place] [address] Care Team Providers Care Machine Steak Tenderizer Name Role Phone Name, Fernandez BROWN Primary Care Provider Unavailabl e Encounter Details Date Type Department Care Team Description 09/11/2014 Building Certifier Report Medical Records [address] [place] [address] Kylah Roland NP Social History Tobacco Use [...] on filedocumented in this encounter Care Teams Machine Steak Tenderizer Relationship Specialty Start Date End Date Name, MD Fernandez PCP - General 10/10/09 documented as of this encounter
--- OUTSIDE RECORDS SUMMARY | 2024-04-26 11:16 | XMS_ITS | Clinical Summary ---
Author Organization [employer] [facility] it Address [address] [place] [address] Care Team Providers Care Fruit Tester Name Role Phone Name, Fernandez BROWN Primary Care Provider [phone] Surgical History Surgery Date Site/Laterality Comments SECTION PROCEDURE: HISTORICAL EXCISION BENIGN SKIN LESION TRUNK / ARM / LEG -[id number] PROCEDURE: HI EXCISION TUMOR SOFT TISSUE BACK/FLANK SUBQ <3CM; COMMENT: below right axilla OTHER SURGICAL HISTORY PROCEDURE: ---- OTHER ----; COMMENT: sleeve gastrectomy Medical History Medical History Date Comments Seizures (CMS/HCC) DX:Seizures ( HCC) Asthma, mild persistent DX:Asthm a, mild persistent History of bariatric surgery 10/21/2017 DX: History of bariatric surgery; COMMENT: Sleeve gastrectomy GERD (gastroesophageal reflux disease) 10/21/2017 DX:GERD (gastroesophageal reflux disease) Family History Relation Name Status Comments Brother Alive 4 alive and one is DM Daughter Alive Father Mother Alive dm, htn Sister Alive 10 sisters and all are DM Son Alive Social History Tobacco Use Types Packs/Day Years Used Date Smoking Tobacco: Never Smokeless Tobacco: Never Alcohol Use Standard Drinks/Week Comments No 0 (1 standard drink = 0.6 oz pur e alcohol) Sex and Gender Information Value Date Recorded Sex Assigned at Not on file Gender Identity Not on file Sexual Orientation Not on file Obstetrics History Plan of Treatment Health Maintenance Due Date Last Done Comments Breast Cancer Screening 1964 Hepatitis B Vaccines (1 of 3 - 19+ 3-dose series) 1983 Cervical Cancer Screening: P ap Smear 1985 Zoster Vaccines (1 of 2) 2014 DTaP,Tdap,and Td Vaccines (2 - Td or Tdap) 02/26/2020 02/25/2010 COVID-19 Vaccine (2023-2 5 season) 2023 Influenza Vaccine (#1) 2023 3, 04/15/2012 RSV Immunization Patients 60 + Years Old (1 - 1-dose 75+ series) 2039 HIB Vaccines Aged Out No longer eligi ble based on patient's age to complete this topic HPV Vaccines Aged Out No longer eligi ble based on patient's age to complete this topic Hepatitis A Vaccines Aged Out No long er eligible based on patient's age to complete this topic IPV Vaccines Aged Out No longer eligi ble based on patient's age to complete this topic MMR Vaccines Aged Out No longer eligi ble based on patient's age to complete this topic Meningococcal ACWY Vaccine Aged Out N o longer eligible based on patient's age to complete this topic Pneumococcal Vaccine: Pediatrics (0 to 5 Years) and At-Risk Patients (6 to 64 Years) Aged Out No longer eligible b ased on patient's age to complete this topic RSV Immunization Patients Under 20 months Aged Out No longer eligible b ased on patient's age to complete this topic Varicella Vaccines Aged Out No longer eligible based on patient's age to complete this topic Care Teams Fruit Tester Relationship Specialty Start Date End Date Name, MD Fernandez [address] [place], [place] PCP - General 10/10/09
--- OUTSIDE RECORDS SUMMARY | 2024-04-26 11:16 | XMS_ITS | Encounter Summary ---
Author Organization [facility] Address [address] [place] [address] Care Team Providers Care Range Aid Name Role Phone Fernandez Stafford MD Primary Care Provider Unavailabl e Reason for Visit * Reason Onset Date Comments Medication 10/11/2013 Encounter Details Date Type Department Care Team Description 10/11/2013 Telephone Adult Medicine [address] [address] Fernandez Stafford MD Medication Social History Tobacco Use Types Packs/Day Years Used Date Smoking Tobacco: Never Smokeless Tobacco: Never Alcohol Use Standard Drinks/Week Comments No 0 (1 standard drink = 0.6 oz pur e alcohol) Sex Assigned at Date Recorded Not on file documented as of this encounter Miscellaneous Notes * Telephone Encounter - Sravanthi Webb - 10/11/2013 2:05 PM EDT What is the name of the medication patient is having a problem with?: Patient does not know the names of two medications. PLEASE CALL PATIENT TO DISCUSS THEY ARE CONFUSED AND PATIENT DOES SPEAK [place], NEEDS SOMEONE TO CALL WHO SPEAKS [place] What is the problem?: Two medications from last visit with Dr. Stafford did were not received at [facility] Is the patient calling about the problem? NO If the patient is not the caller who is? SON - Not on verbal Is this a NEW medication?: YES How long has the patient been taking this medication? Who prescribed this medication for the patient? Fernandez Stfaford Who is patients PCP?: Fernandez Stafford Payor: [employer] FFS / Plan: [employer] CARE PLUS PLAN / Product Type: MEDICAID RISK documented in this encounter Plan of Treatment Not on file documented as of this encounter Visit Diagnoses Not on filedocumented in this encounter Care Teams Range Aid Relationship Specialty Start Date End Date Name, MD Fernandez PCP - General 10/10/09 documented as of this encounter
--- OUTSIDE RECORDS SUMMARY | 2024-04-26 11:16 | XMS_ITS | Encounter Summary ---
Author Organization [facility] Address [address] [place] [address] Care Team Providers Care Hourly Sales Staff Name Role Phone Name, Fernandez BROWN Primary Care Provider Unavailabl e Encounter Details Date Type Department Care Team Description 10/02/2010 Casket Assembler Report Medical Records [address] [place] [address] Kylah Roland NP Social History Tobacco Use [...] on filedocumented in this encounter Care Teams Hourly Sales Staff Relationship Specialty Start Date End Date Name, MD Fernandez PCP - General 10/10/09 documented as of this encounter
--- OUTSIDE RECORDS SUMMARY | 2024-04-26 11:16 | XMS_ITS | Clinical Summary ---
Author Organization [employer] Address [address] [place] [address] Care Team Providers Care Pension Administrator Name Role Phone Name, Fernandez BROWN Primary Care Provider [phone] Allergies Active Allergy Reactions Criticality Noted Date Comments Grass Pollen(K-O-R-T-Swt Willis) 03/13/2019 Iodinated Contrast Media 04/04/2010 Patient has nausa/vomiting and chills after CT with IV contrast and no rash. Molds & Smuts 03/13/2019 Wheat 02/25/2010 Unclear on reaction; Diagnosed by [employer] Techn[employer] Dr. Muniz Medications fluticasone (Flonase) 50 MCG/ACT nasal spray SPRAY 1 SPRAY INTO EACH NOSTRIL EVERY DAY 03/26/19 23 Active glucose blood (FREESTYLE LITE) test stripIndication s:Type 2 diabetes mellitus with other specified complication, without long-term current use of insulin ([facility]) Ust 1 strip to skin route 3 times every day 100 each 09/05/19 23 Active meclizine (Antivert) 25 MG tablet TAKE 1 TABLET BY MOUTH IF NEEDED IN THE MORNING AT NOON AND AT BEDTIME FOR DIZZINESS UP TO 10 DAYS 30 tablet 06/14/19 24 Active albuterol 108 (90 Base) MCG/ACT inhaler Inhale 2 puffs every 6 (six) hours if needed for wheezing. 18 g 11 09/20/19 24 025 Active metFORMIN (Glucophage) 500 MG tablet Take 1 tablet (500 mg) by mouth with breakfast and with evening meal. 180 tablet 1 09/20/19 24 Active carBAMazepine ER (Carbatrol) 300 MG 12 hr capsule Take 1 capsule (300 mg) by mouth every 12 (twelve) hours. 60 capsule 11 09/20/19 24 025 Active sertraline (Zoloft) 25 MG tablet take 1 tablet by oral route every day for week and then 2 tabs daily 60 tablet 11 09/20/19 24 Active betamethasone, augmented, (Diprolene) 0.05 % ointmentIndicat ions:Nummular dermatitis Apply topically 2 times daily. to affected area 15 g 09/20/19 24 Active D3-1000 25 MCG (1000 UT) capsule TAKE 1 CAPSULE BY MOUTH EVERY DAY IN THE MORNING 90 capsule 3 12/27/19 24 Active Dulaglutide (Trulicity) 3 MG/0.5ML solution auto-injector Inject 0.5 mL (3 mg) under the skin 1 (one) time per week. 2 mL 2 02/28/20 24 025 Active losartan (Cozaar) 25 MG tabletIndicatio ns:Type 2 diabetes mellitus with other specified complication, without long-term current use of insulin ([facility]),Hyper tension, unspecified type TAKE 1 TABLET BY MOUTH EVERY DAY FOR BLOOD PRESSURE 90 tablet 1 03/14/20 24 Active atorvastatin (Lipitor) 20 MG tabletIndicatio ns:Hypercholest erolemia TAKE 1 TABLET BY MOUTH EVERY DAY IN THE MORNING 90 tablet 1 03/27/19 25 Active hydrOXYzine HCl (Atarax) 25 MG tabletIndicatio ns:Nummular dermatitis TAKE 1 TABLET BY MOUTH EVERY 8 HOURS NEEDED ITCHING 90 tablet 3 04/11/19 25 Active hydrOXYzine HCl (Atarax) 25 MG tabletIndicatio ns:Nummular dermatitis Take 1 tablet (25 mg) by mouth every 8 (eight) hours if needed for itching. 90 tablet 3 09/20/19 24 025 Discontinued Active Problems Problem Noted Date Diagnosed Date Depressive disorder 09/03/2022 Sleep apnea 05/01/2022 Steatosis of liver 05/01/2022 Hearing loss of right ear 05/01/2022 Bariatric surgery status 05/01/2022 Essential hypertension 10/15/2021 Chronic pain 05/18/2018 Nummular eczema 12/24/2017 GERD (gastroesophageal reflux disease) 08/02/201 8 Obesity, Class I, BMI 30-34.9 09/30/2017 Skin problem 09/10/2017 Vesicular hand eczema 08/23/2017 Familial hypercholesterolemia 12/29/2016 Seizures 07/19/2015 Mild intermittent asthma with acute exacerbation 07/19/2015 Assessment & Plan (01/04/2024 2:36 PM EDT): Pt here with an acute asthma exacerbation likely due to bronchitis Covid and Flu negative. Pt c/o purulent phlegm Plan: Prednisone taper, Albuterol nebulizations, Z-pacl, supportive treatment. Follow up if no improvement or worsening Chest x-ray ordered to rule out CAP Heartburn 07/19/2015 Diabetes mellitus type 2, uncomplicated 12/07/19 15 Allergic rhinitis 11/17/2010 Hypercholesterolemia 11/12/2009 Encounters Date Type Department Care Team Description 04/09/2024 Refill [facility] [address] [place] [address] NameFernandez MD Nummular dermatitis 03/30/2024 Telephone [facility] [address] [place] [address] Arturo Osborne MA feb recalls 03/25/2024 Refill [facility] [address] [place] [address] NameFernandez MD Hypercholesterolemia 03/14/2024 Refill [facility] [address] [place] [phone] NameFernandez MD Type 2 diabetes mellitus with other specified complication, without long-term current use of insulin ([facility]); Hypertension, unspecified type 02/28/2024 1:45 PM EST Telemedicine [facility] [address] [place] [address] NameFernandez MD Type 2 diabetes mellitus without complication, without long-term current use of insulin ([facility]) (Primary Dx); Weight gain; Hypersomnia; Snoring; Daytime sleepiness; Screening for colon cancer 02/23/2024 10:30 AM EST Office Visit [facility] [address] [place] [phone] Corie Lilly FNP Preop examination (Primary Dx); Type 2 diabetes mellitus with other specified complication, without long-term current use of insulin ([facility]) 02/16/2024 Telephone [facility] [address] [place] [address] Evi Mccall RN Referral 02/16/2024 Orders Only [facility] [address] [place] [address] Fazal Velez MD Mild intermittent asthma with acute exacerbation (Primary Dx) 02/10/2024 Telephone [facility] [address] [place] [address] Sidra Atkinson MA CHART PREP 01/28/2024 Telephone [facility] [address] [place] [address] Name, MD Fernandez PRE OP from Last 3 Months Immunizations Name Administration Dates Next Due Hep B, adult 02/08/2023 Influenza Injectable Quadriv alant Preservative Free IIV4 MDCK 01/30/2020 Influenza injectable quadriv alent IIV4 with preservative 12/29/2016,01/10/2016 Influenza injectable quadriv alent preservative free 12/25/2022,12/15/2021,02/17/2021,12/17 Influenza, IIV3, injectable 12/19/2012, 3 Influenza, intradermal, quad rivalent, preservative free 04/15/2012 Pfizer Covid-19 Vaccine 12+ 01/08/2023, 1,06/09/2020 Pfizer Covid-19 Vaccine 12+ jimi-sucrose (Villanueva Cap) 10/08/2021 Pneumococcal Conjugate PCV 20 06/11/2023 Pneumococcal Polysaccharide PPSV23 12/19/2012 TD (adult), 2 Lf tetanus tox oid, preservative free, adsorbed 12/15/2021 Tdap 02/25/2010 Zoster, Recombinant 12/07/2022 Social History Tobacco Use Types Packs/Day Years Used Date Smoking Tobacco: Never Passive Smoke Exposure: Never Smokeless Tobacco: Never Tobacco Cessation:Counseling Given: Not Answered Alcohol Use Standard Drinks/Week Comments Never 0 [...] Orientation Straight 01/19/2022 10 :29 AM EDT Last Filed Vital Signs Vital Sign Reading Time Taken Comments Blood Pressure 129/90 02/23/2024 9:54 AM EST Pulse 77 02/23/2024 9:54 AM EST Temperature 36.8 ??C (98.2 ??F) 01/04/2024 1:32 PM ED T Respiratory Rate 14 02/23/2024 9:54 AM EST Oxygen Saturation 97% 02/23/2024 9:54 AM EST Inhaled Oxygen Concentration - - Weight 83.6 kg (184 lb 3.2 oz) 02/23/2024 9:54 A M EST Height 157.5 cm (5' 2 ) 02/23/2024 9:54 AM EST Body Mass Index 33.69 02/23/2024 9:54 AM EST Plan of Treatment Upcoming Encounters Date Type Department Care Team (Late st Contact Info) Description 06/09/2024 11:30 AM EDT Office Visit [facility] [address] [place] [address] Name, MD Fernandez [address] [place] [address] Health Maintenance Due Date Last Done Comments CT Colonography 1965 Colonoscopy 1965 Colorectal Cancer Screening 1965 FIT DNA/Cologuard 1965 FIT 1965 FOBT 1965 HIV Screening 1965 Sigmoidoscopy 1965 Alcohol/Substance Use Screening 1976 Hepatitis A Vaccines (1 of 2 - Risk 2-dose series) 1983 Zoster Vaccines (2 of 2) 02/01/2023 12/07/2022 Hepatitis B Vaccines (2 of 3 - 19+ 3-dose series) 03/08/2023 02/08/2023 SDOH Screening 09/05/2023 09/04/2022 Diabetes: Foot Exam 01/09/2024 01/08/2023, 01/08/2023, 01/08/2023, Additional history exists Mammogram 06/17/2024 06/18/2023, 04/0 08/2020, 09/20/2017 Diabetes: Urine Protein Screening 06/28/2024 06/29/2023, 01/08/2023, 10/31/2021, Additional history exists Eye Exam 06/28/2024 06/29/2023, 06/29/2023 Lipid Panel 06/28/2024 06/29/2023, 04/23, 10/31/2021, Additional history exists Diabetes: Hemoglobin A1C 08/23/2024 024, 12/22/2023, 09/20/2023, Additional history exists Depression Screening 12/21/2024 12/22/2023, 09/05/19 23 Tobacco Screening 02/22/2025 02/23/2024 Cervical Cancer Screening 12/30/2026 HPV/Cotest 12/30/2026 12/30/2021, 12/20, 10/08/2021 Pap Smear 05/17/2028 05/17/2023, 12/20, 10/08/2021 DTaP/Tdap/Td Vaccines (3 - Td or Tdap) 12/16/2031 12/15/2021, 02/25/2010 RSV Patients and Patients Aged 60 years or older (1 - 1-dose 75+ series) 2039 Hepatitis C Screening Completed 10/30/2020 Pneumococcal Vaccine: 50+ Years Completed 06/11/2023, 12/19/2012 Pneumococcal Vaccine: Pediatrics (0 to 5 Years) and At-Risk Patients (6 to 49) Years) Completed 06/11/2023, 12/19/2012 COVID-19 Vaccine Completed 12/13/2023, , 01/05/2022, Additional history exists Influenza Vaccine Completed 12/13/2023, , 12/15/2021, Additional history exists HIB Vaccines Aged Out No longer eligi ble based on patient's age to complete this topic HPV Vaccines Aged Out No longer eligi ble based on patient's age to complete this topic IPV Vaccines Aged Out No longer eligi ble based on patient's age to complete this topic Meningococcal Vaccine Aged Out No dalila hakan eligible based on patient's age to complete this topic RSV under 20 months Aged Out No longe r eligible based on patient's age to complete this topic Rotavirus Vaccines Aged Out No longer eligible based on patient's age to complete this topic Procedures Procedure Name Priority Date/Time Associated Diagnosis Comments CBC WITH AUTO DIFFERENTIAL Routine 04/26/2024 10:23 AM EST Preop examination XR CHEST 2 VIEWS Routine 02/23/2024 10:4 7 AM EST Mild intermittent asthma with acute exacerbation POCT GLUCOSE Routine 02/23/2024 10:23 AM EST Type 2 diabetes mellitus with other specified complication, without long-term current use of insulin (CMS/HCC) POCT GLYCATED HEMOGLOBIN, TOTAL Routine 02/23/2024 10:22 AM EST Type 2 diabetes mellitus with other specified complication, without long-term current use of insulin (CMS/HCC) LIPID PANEL, STANDARD Routine 06/29/2023 10:48 AM EDT Type 2 diabetes mellitus with other specified complication, without long-term current use of insulin (CMS/HCC) ALBUMIN, RANDOM URINE W/CREATININE Routine 06/29/2023 10:46 AM EDT Type 2 diabetes mellitus with other specified complication, without long-term current use of insulin (CMS/HCC) HM DIABETES EYE EXAM Routine 06/29/2023 BI MAMMOGRAM SCREENING TOMOSYNTHESIS BILATERAL Routine 06/18/2023 10:20 AM EDT PAP SMEAR Routine 05/17/2023 10:56 AM EST ZZZ HISTORICAL HPV E6/E7 RFLX RAYMOND 16 18/45 Routine 12/30/2021 3:27 PM EDT ZZZ HISTORICAL HEPATITIS C AB W/REFL TO HCV RNA, QN, PCR Routine 10/30/2020 4:14 PM EDT from Last 3 Months or Most Recently Relevant to Health Maintenance Results * CBC auto differential (04/26/2024 10:23 AM EST) White Blood Count 7.5 4.8 - 10.8 X10*3/uL [facility] Red Blood Count 4.98 4.20 - 5.50 X10*6/uL [facility] Hemoglobin 14.0 12.0 - 16.0 g/dl [facility] Hematocrit 41.1 37.0 - 47.0 % [facility] Mean Corpuscular Volume 82.5 80.0 - 98.0 fL [facility] Mean Corpuscular Hemoglobin 28.1 27.0 - 33.0 pg [facility] Mean Corpuscular HGB Conc 34.1 31.0 - 35.0 g/dl [facility] Red Cell Distribution Width 13.2 11.0 - 16.0 % [facility] Platelet Count 281 160 - 400 X10*3/uL [facility] Mean Platelet Volume 10.2 9.4 - 12.3 fL [facility] Neutrophils Percent Auto 54.8 45 - 73 % [facility] Imm Gran Pct Auto 0.3 0.0 - 0.4 % [facility] Lymphocytes Percent Auto 34.4 20 - 40 % [facility] Monocytes Percent Auto 5.8 2 - 11 % [facility] Eosinophils Percent Auto 4.0 0 - 4 % [facility] Basophils Percent Auto 0.7 0 - 2 % [facility] NRBC Pct Auto 0.0 0.0 - 0.2 /100WBC [facility] Neutrophils Absolute Auto 4.1 2.0 - 8.3 x10*3/uL [facility] Imm Gran Abs Auto 0.02 0.00 - 0.03 X10*3/uL [facility] Lymphocytes Absolute Auto 2.6 1.2 - 4.9 X10*3/uL [facility] Monocytes Absolute Auto 0.4 0.1 - 1.2 X10*3/uL [facility] Eosinophils Absolute Auto 0.3 0.0 - 0.4 X10*3/uL [facility] Basophils Absolute Auto 0.1 0.0 - 0.2 X10*3/uL [facility] NRBC Abs Auto 0.000 0.0 - 0.012 X10*3/uL [facility] Blood Venous blood specimen / Unknown 04/26/2024 10:23 AM EST 04/26/2024 10:51 AM EST us Corieloi Lilly AUTHORIZATION COORDINATOR LAB BLOOD ORDERABLES Final Res ult Performing Organization Address City/State/[facility] Co de Phone Number [facility] [address] [place] [phone] * XR Chest 2 Views (02/23/2024 10:47 AM EST) Anatomical Region Laterality Modality Chest Radiographic Idania ging 02/23/2024 10:4 7 AM EST Narrative 02/24/2024 11:39 AM EST ?[facility] [place] [facility] ?[address] ?[place] [address] ?XRay Report ? Signed ? Patient: Yeager,Edwina ?MR#: [id number] ?? 601 ? : 1965 ?Acct:[id number] ? Age/Sex: 58 / F ?ADM Date: 02/23/24 ? Loc: HO.HHCX ? Attending Dr: Fazal Juarez MD ? Ordering Physician: Fazal Juarez MD ?? Date of Service: 02/23/24 ?? Procedure(s): XR chest 2V ?? Accession Number(s): [id number] ? cc: Fazal Juarez MD ? EXAMINATION: ?? XR CHEST ? CLINICAL INFORMATION: ?? Previously described upper lobe infiltrate, ensure resolution. ? COMPARISON: ?? Most recent chest radiograph dated 01/04/2024. ? TECHNIQUE: ?? 2 views of the chest were obtained. ? FINDINGS: ?? Resolution of previously seen right upper lobe airspace opacity. No new ?? airspace consolidation. No pleural effusion or pneumothorax. Stable ?? cardiomediastinal silhouette. Right upper quadrant surgical clips. ? XR/XR chest 2V ?? IMPRESSION: ?? Resolution of previously seen right upper lobe airspace opacity. ? Electronically signed by: ??Brett Hall MD ??02/24/2024 11:37 AM EST ? Dictated By: ?Brett Hall MD ? Signed By: ?<Electronically signed by Brett Hall MD in OV> ?02/24/24 1137 ? DD/ 1047 ? TD/TT: 02/23/24 1100 ? Criminal Research Specialist: SR ? Procedure Note Rudy Rangel - 02/24/[address] [address] XRay Report Signed Patient: Armani Yeager#: [id number] 601 : 1965Acct:[id number] Age/Sex: 58 / FADM Date: 02/23/24 Loc: HO.HHCX Attending Dr: Fazal Juarez MD Ordering Physician: Fazal Juarez MD Date of Service: 02/23/24 Procedure(s): XR chest 2V Accession Number(s): [id number] cc: Fazal Juarez MD EXAMINATION: XR CHEST CLINICAL INFORMATION: Previously described upper lobe infiltrate, ensure resolution. COMPARISON: Most recent chest radiograph dated 01/04/2024. TECHNIQUE: 2 views of the chest were obtained. FINDINGS: Resolution of previously seen right upper lobe airspace opacity. No new airspace consolidation. No pleural effusion or pneumothorax. Stable cardiomediastinal silhouette. Right upper quadrant surgical clips. XR/XR chest 2V IMPRESSION: Resolution of previously seen right upper lobe airspace opacity. Electronically signed by: Brett Hall MD 02/24/2024 11:37 AM EST RP Workstation: [email or web address] Dictated By: Brett Hall MD Signed By: <Electronically signed by Brett Hall MD in OV> 02/24/24 1137 DD/ 1047 TD/TT: 02/23/24 1100 Criminal Research Specialist: SR Fazal Amado MD IMG XR PROCEDURES Jayro delaney Result - Final * POCT Glucose (02/23/2024 10:23 AM EST) Glucose Blood, POC 95 60 - 200 mg/dL QC Media Lot # [id number] Lot# Expiration Date ,024 Blood Capillary blood specimen / Unknown 02/23/2024 10:23 AM EST Corieloi Lilly [facility] POINT OF CARE TEST ENTER/EDIT ORDERABLES Final Result * POCT HGB A1C (02/23/2024 10:22 AM EST) Hemoglobin A1C 5.4 4.0 - 6.0 % QC Media Lot # [id number] Lot# Expiration Date Blood 02/23/2024 10:2 2 AM EST Corieloi Lilly AUTHORIZATION COORDINATOR POINT OF CARE TEST ENTER/EDIT ORDERABLES Final Result * (ABNORMAL) Lipid Panel, Standard (06/29/2023 10:48 AM EDT) Triglycerides 134 <150 mg/dL [facility] Comment:Desirable Triglyceri de: less than 150 mg/dLBorderline High Triglyceride 150-199 mg/dLHigh Triglyceride: 200-499 mg/dLVery High Triglyceride: greater than or equal to 5OO mg/dL Cholesterol 236(H) <200 mg/dL [facility] Comment:Desirable Cholestero l: less than 200 mg/dLBorderline High Cholesterol: 200-239 mg/dLHigh Cholesterol: greater than 239 mg/dL LDL Cholesterol Calculated 162(H) <100 mg/dL [facility] Comment:Desirable LDL: less than 100 mg/dLNear Optimal/Above Optimal LDL: 110- 129 mg/dLBorderline High LDL: 130-159 mg/dLHigh LDL: 160-189 mg/dLVery High LDL: greater than or equal to 190 mg/dL HDL Cholesterol 48 >40 mg/dL [facility] Comment:Desirable HDL: great er than 40 mg/dL Note: This HDL assay may give artificially low results in patients with liver disease. Blood Venous blood specimen / Unknown 06/29/2023 10:48 AM EDT 06/29/2023 10:48 AM EDT us Fernandez Name MD LAB BLOOD ORDERABLES Final Resul t [facility] [address] [place] [phone] * Albumin, Random Urine W/Creatinine (06/29/2023 10:46 AM EDT) Creatinine, Urine 85.72 mg/dL [facility] Microalbumin Urine <5.0 mg/L [facility] Microalbum Creatinine Ratio Ur TNP <30 ug/mg cr [facility] Comment:Unable to calculate albumin/creatinine ratio due to lowmicroalbumin or creatinine result. Urine (Urine, Random) 06/29/2023 10:46 AM EDT 06/29/2023 11:48 AM EDT us Fernandez Stafford MD LAB URINE ORDERABLES Final Resul t [facility] [address] [place] [phone] * Hm Diabetes Eye Exam (06/29/2023) Eye Exam Normal Normal Fernandez Stafford MD HEALTH MAINTENANCE Final Result * BI Mammogram Screening Tomosynthesis Bilateral (06/18/2023 10:20 AM EDT) Anatomical Region Laterality Modality Breast Bilateral Mammography 06/18/2023 10:2 0 AM EDT Narrative 07/03/2023 10:18 PM EDT ? [facility] [place] ? [address] ?[place] [address] ? Mammography Report ? Signed ? Patient: Yeager,Edwina ?MR#: [id number] ?? 601 ? : 1965 ?Acct:[id number] ? Age/Sex: 58 / F ?ADM Date: 06/17/ ? Loc: HO.MAMMO ? Attending Dr: Saul Dobbins MD ? Ordering Physician: Saul Dobbins MD ?Results: 1Negativ ?? e ? Date of Service: 06/17/ ?Follow Up: 1 Year From Orig ?? inal Mammogram ? Procedure(s): MM tomosynthesis screening BI ?? Accession Number(s): [id number] ? cc: Fernandez Stafford MD; Saul Dobbins MD ? EXAMINATION: ?? MM SCREENING DIGITAL BREAST TOMOSYNTHESIS, BILATERAL ? CLINICAL INFORMATION: ? Screening. Asymptomatic. ? COMPARISON: ?? Mammography: This study is compared with prior exams dating back to ?? 2018. ? TECHNIQUE: ?? Digital breast tomosynthesis is performed in both the craniocaudal and ?? mediolateral oblique views along with computer-aided detection (CAD). ?? Synthesized 2D images are generated from the tomosynthesis. ? FINDINGS: ?? The breasts are heterogeneously dense, which may obscure small masses ?? (ACR BI-RADS breast composition Category c). ? There are no significant masses, abnormal calcifications, or other ?? abnormalities. ? MM/MM tomosynthesis screening BI ?? IMPRESSION: ?? No mammographic evidence of malignancy. ? ASSESSMENT: ? BI-RADS BI-RADS 1 - Negative ? RECOMMENDATION: ?? Routine annual mammography screening. ? 1 year F/U ? This examination should not preclude the clinical evaluation of a ?? suspicious palpable abnormality. ? This patient's information was entered into a reminder system with a ?? target due date for their next mammogram. ? Dictated By: ?Pennie Patel MD ? Signed By: ?<Electronically signed by Pennie Patel MD in OV> ? 07/03/23 2214 ? DD/ 1020 ? TD/TT: ? Criminal Research Specialist: ? Procedure Note Juan Carlos, Image - 07/03/2023 [facility] [address] [place] [address] [place] [address] Mammography Report Signed Patient: Armani Yeager#: [id number] 601 : 1965Acct:[id number] Age/Sex: 58 / FADM Date: 06/18/23 Loc: HO.MAMMO Attending Dr: Saul Dobbins MD Ordering Physician: Saul Dobbinsults: 1Negativ e Date of Service: 06/18/23Follow Up: 1 Year From Orig ina Mammogram Procedure(s): MM tomosynthesis screening BI Accession Number(s): [id number] cc: Nydia,Fernandez BROWN; Saul Dobbins MD EXAMINATION: MM SCREENING DIGITAL BREAST TOMOSYNTHESIS, BILATERAL CLINICAL INFORMATION: Screening. Asymptomatic. COMPARISON: Mammography: This study is compared with prior exams dating back to 2018. TECHNIQUE: Digital breast tomosynthesis is performed in both the craniocaudal and mediolateral oblique views along with computer-aided detection (CAD). Synthesized 2D images are generated from the tomosynthesis. FINDINGS: The breasts are heterogeneously dense, which may obscure small masses (ACR BI-RADS breast composition Category c). There are no significant masses, abnormal calcifications, or other abnormalities. MM/MM tomosynthesis screening BI IMPRESSION: No mammographic evidence of malignancy. ASSESSMENT: BI-RADS BI-RADS 1 - Negative RECOMMENDATION: Routine annual mammography screening. 1 year F/U This examination should not preclude the clinical evaluation of a suspicious palpable abnormality. This patient's information was entered into a reminder system with a target due date for their next mammogram. Dictated By: Pennie Patel MD Signed By: <Electronically signed by Pennie Patel MD in OV> 07/03/23 2214 DD/ 1020 TD/TT: Criminal Research Specialist: [facility] External Provider IMG BI PROCEDURES Final Result * Pap Smear (05/17/2023 10:56 AM EST) 05/17/2023 10:5 6 AM EST 05/18/2023 12:15 PM EST [facility] - 05/28/2023 12:06 PM EST ----- ------- Name: Edwina Yeager ?Age/Sex: 58/F ? : 1965 Unit#: [id number] ?? Attend Dr: Saul Dobbins MD ?Re05/17/23 ?Status: DEP REF ? Location: HO.LNP ?Disch: ? ----- ------- SPEC : [id number] ? RECD: 05/18/23-1215 ? STATUS: ??SOUT ? REQ NUM: [id number] ? NASREEN: 05/17/23-1056 ? SUBM DR: Saul Dobbins MD ? ENTERED: ??05/19/23 ?SP TYPE: Pap Smr ?OTHR DR: NameFernandez MD ? ORDERED: ??Pap Smear ? Interpretation ?? Satisfactory for evaluation. ?? Atrophic. ?? Mild inflammation. ?? Negative for intraepithelial lesion or malignancy. ?HPV mRNA E6/E7: ?NOT DETECTED ? This assay detects E6/E7 viral messenger RNA (mRNA) from 14 high-risk HPV types (16, 18, ?? 31, 33, 35, 39, 45, 51, 52, 56, 58, 59, 66, 68) ?? HPV testing performed by [facility], [place], [place]. ??See reference laboratory ?? portion of the EMR for entire report. ?Clinical Information LMP: Postmenopausal Previous PAP test: 2021, Unknown findings ? Material Received ?? ThinPrep-Cervical Copies To: ?? Name,Fernandez BROWN ?? [address] [facility] ?? [place] [address] ?? [phone] ?? Saul Dobbins MD ?? [address] [place] ?? [place] [address] ?? [phone] ----- ------- Signed (signature on file) JIGAR Oro (ASCP) 05/28/23 4636 ? ----- ------- ? END OF REPORT ? Generic External Data Provider LAB CYTOLOGY ORDBrent RABMARIA VICTORIA Final Result Performing Organization Address [facility] Co de Phone Number [facility] [address] [place] [address] [phone] * HPV E6/E7 RFLX RAYMOND 16 18/45 (12/30/2021 3:27 PM EDT) Pathologist [facility] HPV 16 RNA TNP CONVERTED LEGACY LABS HPV 18/45 RNA TNP [facility] LABS HPV E6 E7 ADD TNP [facility] HPV mRNA E6/E7 rflx Not Detected Not Detected CONVERTED LEGACY LABS Comment: Methodology: Manager Of Community Relations-Mediated Amplification This assay detects E6/E7 viral messenger RNA (mRNA) from 14 high-risk HPV types (16,18,31,33,35,39,45,51,52,56,58,59,66,68). Cervical sources are required for HPV testing. If a vaginal source from a patient who has had a total hysterectomy with removal of cervix was submitted, please contact the testing laboratory for alternative testing options. For additional information, please refer to http://education.Oktogo/faq/BGH260h0 (This link if provided for information/ educational purposes only.) THIS TEST WAS PERFORMED AT: [employer] [address] [place] [address] [address]LO[address] [place], [place] ??[address] YESSICA BURNETTE MD 12/30/2021 3:27 PM EDT Saul Dobbins MD HISTORICAL/NON ORDERABLE LABS Fi nal Result Performing Organization Address City/[facility]/ZIP Co de Phone Number CONVERTED LEGACY LABS * HEPATITIS C AB W/REFL TO HCV RNA, QN, PCR (10/30/2020 4:14 PM EDT) HEPATITIS C ANTIBODY NON-REACT [facility] NON-REACT [facility] INDEX 0.04 <1.00 [facility] Comment: ?? HCV antibody was non-reactive. There is no laboratory ?? evidence of HCV infection. ?? In most cases, no further action is required. However, if recent HCV exposure is suspected, a test for HCV RNA (test code 73227) is suggested. ?? For additional information please refer to http://[employer].Oktogo/faq/REL86s3 (This link is being provided for informational/ educational purposes only.) ?? 10/30/2020 4:14 PM EDT us Fernandez Stafford MD HISTORICAL/NON ORDERABLE LABS Fi nal Result [facility] [address] from Last 3 Months or Most Recently Relevant to Health Maintenance [place] [address] C3 HSN FULL Care Teams Pension Administrator Relationship Specialty Start Date End Date Name, MD Fernandez [address] [place] [id number] PCP - General Family Medicine 07/19/15
--- OUTSIDE RECORDS SUMMARY | 2024-04-26 11:16 | XMS_ITS | Encounter Summary ---
Author Organization [facility] Address [address] [facility] [address], [place] [address] Care Team Providers Care Freight Handler Name Role Phone Name, Fernandez BROWN Primary Care Provider [phone] Reason for Visit * Reason Onset Date Comments Appointment Request 04/17/2022 Encounter Details Date Type Department Care Team (Late st Contact Info) Description 04/17/[address] [facility] [address] [place] [address] [phone] Name, MD Fernandez [address] [place] [phone] Appointment Request Social History Tobacco Use Types Packs/Day Years Used Date Smoking Tobacco: Never Assessed Comments Unknown Sex and Gender Information Value Date Recorded Sex Assigned at Female 01/19/2022 10:29 AM EDT Legal Sex Female 10:29 AM EDT Gender Identity Female 01/19/2022 10:29 AM EDT Sexual Orientation Straight 01/19/2022 10 :29 AM EDT documented as of this encounter Miscellaneous Notes * Telephone Encounter - Armando Norwood - 04/17/2022 3:36 PM EST Tc from pt requesting an appt to see derm. documented in this encounter Plan of Treatment Upcoming Encounters Date Type Department Care Team (Late st Contact Info) Description 06/09/2024 11:30 AM EDT Office Visit [facility] [address] [place] [phone] Name, MD Fernandez [address] [place] [phone] documented as of this encounter Visit Diagnoses Not on filedocumented in this encounter Care Teams Freight Handler Relationship Specialty Start Date End Date Name, MD Fernandez [address] [place] [address] PCP - General Family Medicine 07/19/15 documented as of this encounter
--- OUTSIDE RECORDS SUMMARY | 2024-04-26 11:16 | XMS_ITS | Encounter Summary ---
Author Organization [facility] Address [address] [place] [address] Care Team Providers Care Alarm Adjuster Name Role Phone Name, Fernandez BROWN Primary Care Provider Unavailabl e Reason for Visit * Reason Comments E-prescribe Rx Request Encounter Details Date Type Department Care Team Description 05/04/2015 Refill Adult Medicine [address] [address] Adele Rosales PA-C E-prescribe Rx Request Social History Tobacco Use Types Packs/Day Years Used Date Smoking Tobacco: Never Smokeless Tobacco: Never Alcohol Use Standard Drinks/Week Comments No 0 (1 standard drink = 0.6 oz pur e alcohol) Sex Assigned at Date Recorded Not on file documented as of this encounter Miscellaneous Notes * Telephone Encounter - Radha Templeton MD - 2015 11:00 AM EST Refill done; any further refills to come from PCP at [facility] * Telephone Encounter - Ade Sarmiento M.A. - 2015 10:34 AM EST Following Name Component Value Date HGBA1C 8.6 01/11/2015 MALBUR 6.7 01/11/2015 MALBCR 10.3 01/11/2015 CHOL 241 01/11/2015 LDL 168 01/11/2015 HDL 34 01/11/2015 TRIG 197 01/11/2015 GLU 155 01/11/2015 CREAT 0.7 01/11/2015 * Telephone Encounter - Kelli Bahena - 2015 10:30 AM EST Will follow dr solis, but needs refills before seeing him * Telephone Encounter - Kelli Bahena - 2015 10:29 AM EST Patient will be following dr solis, but needs refills until seen in [place] * Telephone Encounter - Ade Sarmiento M.A. - 2015 10:05 AM EST Pt needs to pick a new pcp or let us know if she is following Dr Solis. * Telephone Encounter - Kelli Bahena - 2015 9:16 AM EST Patient would like script to be: E-PRESCRIBED/FAXED TO PHARMACY WHEN WAS THE PATIENT'S LAST APPOINTMENT IN ADULT MEDICINE? 01/04/15 WHEN WAS THE LAST TIME THE PATIENT SAW THEIR PCP? Same as above Does patient have an upcoming appointment? No-unable to reach left [facility] to call for appointment due to refill request. Appt due needs to change pcp (THE MEDICATION REQUESTED IS ON THE MED LIST ABOVE) All of the medications requested were on the CURRENT MEDS list Did you check the Pharmacy information above?: YES Patient wants: 30 -day supply Is this a mail order prescription request ? NO Patients current insurance carrier is: Payor: [facility] MEDICAID / Plan: [facility] MEDICAID O $0 MARILEE / Product Type: HMO [id number] documented in this encounter Plan of Treatment Not on file documented as of this encounter Visit Diagnoses Not on filedocumented in this encounter Care Teams Alarm Adjuster Relationship Specialty Start Date End Date Name, MD Fernandez PCP - General 10/10/09 documented as of this encounter
--- OUTSIDE RECORDS SUMMARY | 2024-04-26 11:16 | XMS_ITS | Encounter Summary ---
Author Organization [facility] Address [address] [place] [address] Care Team Providers Care Sample Tester Grinder Name Role Phone Name, Fernandez BROWN Primary Care Provider Unavailabl e Encounter Details Date Type Department Care Team Description 06/24/2016 Hospital Medical Records [address] [place] [address] Lawson Guevara MD [address] [place] [address] [address] [place] [address] Social History Tobacco Use Types Packs/Day Years [...] on filedocumented in this encounter Care Teams Sample Tester Grinder Relationship Specialty Start Date End Date Name, MD Fernandez PCP - General 10/10/09 documented as of this encounter
--- OUTSIDE RECORDS SUMMARY | 2024-04-26 11:16 | XMS_ITS | Encounter Summary ---
Author Organization [email or web address] [facility] Address [address] [facility] 7t [place] [address] Care Team Providers Care Manager Msw Name Role Phone Name, Fernandez BROWN Primary Care Provider [phone] Encounter Details Date Type Department Care Team (Latest Contact Info) Description 09/09/2018 Abstract [facility] CONVERSIONS Dental, Provider, DDS Social History Tobacco Use Types Packs/Day Years [...] 11:30 AM EDT Office Visit [facility] MEDICINE [address] [place] [address] NameFernandez MD [address] [place] [address] documented as of this encounter Visit Diagnoses Not on filedocumented in this encounter Care Teams Manager Msw Relationship Specialty Start Date End Date Fernandez Stafford MD [address] [place] [address] PCP - General Family Medicine 07/19/15 documented as of this encounter
--- OUTSIDE RECORDS SUMMARY | 2024-04-26 11:16 | XMS_ITS | Encounter Summary ---
Author Organization [employer] Address [address] [facility] 7t [place] [address] Care Team Providers Care Clinical Informatics Strategist Name Role Phone Name, Fernandez BROWN Primary Care Provider [phone] Reason for Visit * Reason Comments Med Refill Encounter Details Date Type Department Care Team ([facility] st Contact Info) Description 04/09/2024 Refill [facility] [address] [place], [place] [phone] Name, MD Fernandez [address] [place] [address] Nummular dermatitis Social History Tobacco Use Types Packs/Day Years [...] Description 06/09/2024 11:30 AM EDT Office Visit [facility] [address] [place] [phone] NameFernandez MD [address] [place] [address] documented as of this encounter Visit Diagnoses Diagnosis Nummular dermatitis Contact dermatitis and other eczema, due to unspecified cause documented in this encounter Additional Health Concerns Assessment Noted Time PHQ-9 Depression Total Score: 5 09/05/19 23 10:02 AM EDT documented as of this encounter Care Teams Clinical Informatics Strategist Relationship Specialty Start Date End Date Fernandez Stafford MD [address] [place] [address] PCP - General Family Medicine 07/19/15 documented as of this encounter
--- OUTSIDE RECORDS SUMMARY | 2024-04-26 11:16 | XMS_ITS | Encounter Summary ---
Author Organization [facility] Address [address] [place] [address] Care Team Providers Care Vocational Rehabilitation Counselor Name Role Phone Fernandez Stafford MD Primary Care Provider Unavailabl e Encounter Details Date Type Department Care Team Description 10/11/2013 Telephone Adult [address] [address] Name, MD Fernandez Social History Tobacco Use Types Packs/Day Years Used Date Smoking Tobacco: Never Smokeless Tobacco: Never Alcohol Use Standard Drinks/Week Comments No 0 (1 standard drink = 0.6 oz pur e alcohol) Sex Assigned at Date Recorded Not on file documented as of this encounter Miscellaneous Notes * Telephone Encounter - Neva Johnson M.A. - 10/11/2013 4:17 PM EDT Patient states that she was suppose to receive a script to lower her tryglicerides and a script fora cream was given to her for her skin. The script that was given to her for the cream pharmacy did not take due to missing dose/mg. And pharmacy is stating the the script for fenofibrate was never sent. Please review and send scripts again thank you. documented in this encounter Plan of Treatment Not on file documented as of this encounter Visit Diagnoses Not on filedocumented in this encounter Care Teams Vocational Rehabilitation Counselor Relationship Specialty Start Date End Date Fernandez Stafford MD PCP - General 10/10/09 documented as of this encounter
--- OUTSIDE RECORDS SUMMARY | 2024-04-26 11:16 | XMS_ITS | Clinical Summary ---
Author Organization [facility] Address [address] [place] [address] Care Team Providers Care Cook Tortilla Name Role Phone Unavailable Primary Care Provider Unavailabl e Source Comments PLEASE NOTE, if this patient is a minor, it may be UNLAWFUL to discuss sensitive information that is contained in these records (such as FAMILY PLANNING, MENTAL HEALTH or SUBSTANCE ABUSE) with the minor patient's parent or other person without the patient's specific authorization.[facility] Immunizations Name Administration Dates Next Due PFIZER COVID VACCINE, PURPLE CAP, 12+ 12/01/2020 Social History Tobacco Use Types Packs/Day Years Used Date Smoking Tobacco: Never Assessed Social Connections Answer Date Recorded Connectedness 0 12/02/2023 Financial Resource Strain Answer Date R ecorded Financial Resource Strain 0 2020 Stress Answer Date Recorded Stress 0 12/01/2020 Physical Activity Answer Date Recorded Physical Activity 0 12/01/2020 Food Insecurity Answer Date Recorded Food 0 12/16/2023 Transportation Needs Answer Date Record ed Transportation 0 12/01/2020 Housing Stability Answer Date Recorded Housing 0 12/01/2020 Safety and Environment Answer Date Gene rded Safety 0 12/01/2020 Utilities Answer Date Recorded Utilities 0 12/01/2020 Employment Answer Date Recorded Stress 0 12/02/2023 Comments Unknown Sex and Gender Information Value Date Recorded Sex Assigned at Not on file Legal Sex Female 9:38 AM PDT Gender Identity Not on file Sexual Orientation Not on file Plan of Treatment Health Maintenance Due Date Last Done Comments Diabetes Screening 1964 HPV Screening 1964 Hepatitis C Screening 1964 Lipid Screening 1964 Pap + HPV 1964 Tobacco Screening 1964 HIV Screening 1979 Hypertension Screening (#1) 1982 Imm-Hepatitis B (1 of 3 - 19 + 3-dose series) 1983 Cervical Cancer Screening 1985 Pap Smear 1985 Breast Cancer Screening (Mammogram) 2004 CT Colonography 2009 Colonoscopy 2009 Colorectal Cancer Screening 2009 FIT/gFOBT 2009 Fecal DNA 2009 Flexible Sigmoidoscopy 2009 Imm-Zoster, Recombinant (1 of 2) 2014 Imm-DTaP/Tdap/Td (2 - Td or Tdap) 02/26/2020 010 [id number] ( season) 2023 12/01/2020, 06/30/2020, 06/09/2020 Imm-Influenza (#1) 2023 01/30/2020, 0 12/17/2017, 12/29/2016, Additional history exists Alcohol and Drug Screen 03/22/2024 Depression Annual Screen 03/22/2024 Cervical Ablation/Cold-Knife Conization Discontinued Cervical Cryotherapy Discontinued Colposcopy Discontinued Endometrial Biopsy Discontinued Excision/Leep Discontinued HPV Genotyping Discontinued Vaginal Pap Discontinued Vulvoscopy Discontinued [address]
--- OUTSIDE RECORDS SUMMARY | 2024-04-26 11:16 | XMS_ITS | Encounter Summary ---
Author Organization [employer] [facility] Address [address] [facility] 7t [place] [address] Care Team Providers Care Pin Machine Tender Name Role Phone Name, Fernandez BROWN Primary Care Provider [phone] Encounter Details Date Type Department Care Team (Late st Contact Info) Description 04/14/2022 Orders Only [facility] [address] [place] [address] Ada Concepcion LPN Social History Tobacco Use Types Packs/Day Years [...] Description 06/09/2024 11:30 AM EDT Office Visit [facility] [address] [place] [address] Fernandez Stafford MD [address] [place] [address] documented as of this encounter Visit Diagnoses Not on filedocumented in this encounter Care Teams Pin Machine Tender Relationship Specialty Start Date End Date Fernandez Stafford MD [address] [place] [address] PCP - General Family Medicine 07/19/15 documented as of this encounter
[2024-04-26 11:39] LABS: Alanine Aminotransferase 26 U/L (0-31); Albumin Level 4.2 g/dL (3.5-5.0); Alkaline Phosphatase 86 U/L (39-117); Anion Gap 8 (12-20); Aspartate Amino Transferase 29 U/L (5-31); Bilirubin Total 0.4 mg/dL (0.0-1.0); Blood Urea Nitrogen 9 mg/dL (9-16); Calcium 9.5 mg/dL (8.4-10.2); Carbon Dioxide 28 mmol/L (22-29); Chloride 108 mmol/L (96-108); Estimated Glomerular Filt Rate > 60; Glucose Random 97 mg/dL (60-115); Potassium 3.9 mmol/L (3.3-5.1); Sodium 140 mmol/L (135-145)
== END 2024-04-26 10:20 | disposition home or self-care (01) ==
LOC: HO.HHCL 10:19
PROVIDERS: Visit Provider Nurse Practitioner Family
DX: Z01.818 Encounter for other preprocedural examination (principal)
CPT/HCPCS: 36415; 80053; 85025

== ENCOUNTER 2024-06-20 08:09 | Outpatient (REF) | payer MEDICAID, SELFPAY ==
--- OUTSIDE RECORDS SUMMARY | 2024-06-20 08:26 | XMS_ITS | Encounter Summary ---
Author Organization [facility] [facility] Address [address] [facility] [address], [place] [address] Care Team Providers Care Community Engagement Specialist Name Role Phone Name, Fernandez BROWN Primary Care Provider [phone] Reason for Visit * Reason Onset Date Comments Appointment Request 04/17/2022 Encounter Details Date Type Department Care Team ([facility] st Contact Info) Description 04/17/[address] [facility] MEDICINE [address] [place], [place] [phone] Name, MD Fernandez [address] [place] [address] Appointment Request Social History Tobacco Use Types [...] on filedocumented in this encounter Care Teams Community Engagement Specialist Relationship Specialty Start Date End Date Name, MD Fernandez [address] [place], [place] [phone] PCP - General Family Medicine 07/19/15 documented as of this encounter
--- OUTSIDE RECORDS SUMMARY | 2024-06-20 08:26 | XMS_ITS | Encounter Summary ---
Author Organization [employer] [facility] Address [address] [facility] 7t [place] [address] Care Team Providers Care Logging Crew Supervisor Name Role Phone Name, Fernandez BROWN Primary Care Provider [phone] Encounter Details Date Type Department Care Team (Late st Contact Info) Description 12/15/2022 Orders Only [facility] [address] [place] [address] Provider, Historical, Social History Tobacco Use Types Packs/Day Years [...] on file documented as of this encounter Procedures Procedure [...] documented as of this encounter Care Teams Logging Crew Supervisor Relationship Specialty Start Date End Date Name, MD Fernandez [address] [place] [address] PCP - General Family Medicine 07/19/15 documented as of this encounter
--- OUTSIDE RECORDS SUMMARY | 2024-06-20 08:26 | XMS_ITS | Clinical Summary ---
Author Organization [employer] Address [address] [facility] 7[address] [place] [address] Care Team Providers Care Research Instructor Name Role Phone Name, Fernandez BROWN Primary Care Provider [phone] Allergies Active Allergy Reactions Criticality Noted Date Comments Grass Pollen(K-O-R-T-Swt Willis) 03/13/2019 Iodinated Contrast Media 04/04/2010 Patient has nausa/vomiting and chills after CT with IV contrast and no rash. Molds & Smuts 03/13/2019 Wheat 02/25/2010 Unclear on reaction; Diagnosed by Transportation Dispatcher Dr. Muniz Medications fluticasone (Flonase) 50 MCG/ACT nasal spray SPRAY 1 SPRAY INTO EACH NOSTRIL EVERY DAY 03/26/19 23 Active glucose blood (FREESTYLE LITE) test stripIndicatio ns:Type 2 diabetes mellitus with other specified complication, without long-term current use of insulin ([facility]) Ust 1 strip to skin route [...] for wheezing. 18 g 11 09/20/19 24 2024 Active metFORMIN (Glucophage) 500 MG tablet Take 1 tablet (500 mg) by mouth with breakfast and with evening meal. 180 tablet 1 09/20/19 24 Active carBAMazepine ER (Carbatrol) 300 MG 12 hr capsule Take 1 capsule (300 mg) by mouth every 12 (twelve) hours. 60 capsule 09/20/19 24 2024 Active sertraline (Zoloft) 25 MG tablet take 1 tablet by oral route every day for week and then 2 tabs daily 60 tablet 09/20/19 24 Active D3-1000 25 MCG (1000 UT) capsule TAKE 1 CAPSULE BY MOUTH EVERY DAY IN THE MORNING 90 capsule 3 12/27/19 24 Active losartan (Cozaar) 25 MG tabletIndicati ons:Type 2 diabetes mellitus with other specified complication, without long-term current use of insulin ([facility]),Hype rtension, unspecified type TAKE 1 TABLET BY MOUTH EVERY DAY FOR BLOOD PRESSURE 90 tablet 1 03/14/20 24 Active atorvastatin (Lipitor) 20 MG tabletIndicati ons:Hyperchole sterolemia TAKE 1 TABLET BY MOUTH EVERY DAY IN THE MORNING 90 tablet 1 03/27/19 25 Active hydrOXYzine HCl (Atarax) 25 MG tabletIndicati ons:Nummular dermatitis TAKE 1 TABLET BY MOUTH EVERY 8 HOURS NEEDED ITCHING 90 tablet 3 04/11/19 25 Active Tirzepatide (Mounjaro) 5 MG/0.5ML solution auto-injectorI ndications:Typ e 2 diabetes mellitus without complication, without long-term current use of insulin ([facility]),Obes ity, Class I, BMI 30-34.9 Inject 5 mg under the skin 1 (one) time per week. 2 mL 06/10/192024 Active betamethasone, augmented, (Diprolene) 0.05 % ointmentIndica tions:Nummular dermatitis Apply topically 2 times daily. to affected area 15 g 06/10/19 Active albuterol (2.5 MG/3ML) 0.083% nebulizer solution Take 3 mL (2.5 mg) by nebulization every 6 (six) hours if needed for wheezing. 75 mL 06/10/19 25 2025 Active fluticasone furoate (Arnuity Ellipta) 100 MCG/ACT inhaler Inhale 1 puff Once per day. Rinse mouth with water after use to reduce aftertaste and incidence of candidiasis. Do not swallow. 1 each 06/10/19 25 2025 Active betamethasone, augmented, (Diprolene) 0.05 % ointmentIndica tions:Nummular dermatitis Apply topically 2 times daily. to affected area 15 g 09/20/19 24 2024 Discontinued(R eorder (will not trigger notification to Pharmacy)) Dulaglutide (Trulicity) 3 MG/0.5ML solution auto-injector Inject 0.5 mL (3 mg) under the skin 1 (one) time per week. 2 mL 2 02/28/20 24 2024 Discontinued(T herapy completed) Active Problems Problem Noted Date Diagnosed Date Depressive disorder 09/03/2022 Sleep apnea 05/01/2022 Steatosis of liver 05/01/2022 Hearing loss of right ear 05/01/2022 Bariatric surgery status 05/01/2022 Essential hypertension 10/15/2021 Chronic pain 05/18/2018 Nummular eczema 12/24/2017 GERD (gastroesophageal reflux disease) 8 Obesity, Class I, BMI 30-34.9 09/30/2017 [...] Encounters Date Type Department Care Team Description 06/19/2024 Telephone [facility] [address] [place] [phone] NameFernandez MD Prior Authorization 06/09/2024 11:30 AM EDT Office Visit [facility] [address] [place] [phone] NameFernandez MD Type 2 diabetes mellitus without complication, without long-term current use of insulin ([facility]) (Primary Dx); Obesity, Class I, BMI 30-34.9; Nummular dermatitis; Mild intermittent asthma with acute exacerbation; On statin therapy 06/09/2024 Travel 06/08/2024 Telephone [facility] [address] [place] [address] Arturo Osborne MA chart prep 06/02/2024 Population [facility] Risk Score [facility] () Department [address] [place] [phone] Provider, Population Health Generic 05/17/2024 Telephone [facility] [address] [place] [address] Name, MD Fernandez Nurse Triage 04/09/2024 Refill [facility] [address] [place] [address] Name, MD Fernandez Nummular dermatitis 03/30/2024 Telephone [facility] [address] [place] [address] Arturo Osborne MA feb recalls 03/25/2024 Refill [facility] [address] [place] [address] Name, MD Fernandez Hypercholesterolemia from Last 3 Months Immunizations Name Administration [...] your housing situation today? I have bobby katharine 01/05/[address] you li [...] Sign Reading Time Taken Comments Blood Pressure 137/89 06/09/2024 11:48 AM EDT Pulse 77 06/09/2024 11:48 AM EDT Temperature 36.2 ??C (97.1 ??F) 06/09/2024 1 1:48 AM EDT Respiratory Rate 21 06/09/2024 11:4 8 AM EDT Oxygen Saturation 98% 06/09/2024 11: 48 AM EDT Inhaled Oxygen Concentration - - Weight 83.8 kg (184 lb 12.8 oz) 025 11:48 AM EDT Height 157.5 cm (5' 2 ) 06/09/2024 11:4 8 AM EDT Body Mass Index 33.8 06/09/2024 11:48 AM EDT Plan of Treatment Health Maintenance Due Date Last Done Comments CT Colonography 1965 Colonoscopy 1965 Colorectal Cancer Screening 1965 FIT DNA/Cologuard 1965 FIT 1965 FOBT 1965 HIV Screening 1965 Sigmoidoscopy 1965 Alcohol/Substance Use Screening 1976 Hepatitis A Vaccines (1 of 2 - Risk 2-dose series) 1983 Zoster Vaccines (2 of 2) 02/01/2023 12/07/2022 Hepatitis B Vaccines (2 of 3 - Risk 3-dose series) 03/08/2023 02/08/2023 SDOH Screening 09/05/2023 09/04/2022 Diabetes: Foot Exam 01/09/2024 01/08/2023, 01/08/2023, 01/08/2023, Additional history exists RSV Patients and Patients Aged 60 years or older (1 - Risk 60-74 years 1-dose series) 2024 Mammogram 06/17/2024 06/18/2023, 04/0 08/2020, 09/20/2017 Diabetes: Urine Protein Screening 06/28/2024 06/29/2023, 01/08/2023, 10/31/2021, Additional history exists Eye Exam 06/28/2024 06/29/2023, 06/29/2023 Lipid Panel 06/28/2024 06/29/2023, 04/23, 10/31/2021, Additional history exists Diabetes: Hemoglobin A1C 08/23/2024 024, 12/22/2023, 09/20/2023, Additional history exists Depression Screening 12/21/2024 12/22/2023, 09/05/19 23 Tobacco Screening 06/09/2025 06/09/2024 Cervical Cancer Screening 12/30/2026 HPV/Cotest 12/30/2026 12/30/2021, 12/20, 10/08/2021 Pap Smear 05/17/2028 05/17/2023, 12/20, 10/08/2021 DTaP/Tdap/Td Vaccines (3 - Td or Tdap) 12/16/2031 12/15/2021, 02/25/2010 Hepatitis C Screening Completed 10/30/2020 Pneumococcal Vaccine: 50+ Years Completed 06/11/2023, 12/19/2012 COVID-19 Vaccine Completed 12/13/2023, [...] Procedure Name Priority Date/Time Associated Diagnosis Comments POCT GLUCOSE Routine 06/09/2024 11:54 AM EDT Type 2 diabetes mellitus without complication, without long-term current use of insulin ([facility]) CBC WITH AUTO DIFFERENTIAL Routine 04/26/2024 10:23 AM EST Preop examination COMPREHENSIVE METABOLIC PANEL Routine 04/26/2024 10:23 AM EST Preop examination POCT GLYCATED HEMOGLOBIN, TOTAL Routine 02/23/2024 10:22 AM EST Type 2 diabetes mellitus with other specified complication, without long-term current use of insulin ([facility]) LIPID PANEL, STANDARD Routine 06/29/2023 10:48 AM EDT Type 2 diabetes mellitus with other specified complication, without long-term current use of insulin ([facility]) ALBUMIN, RANDOM URINE W/CREATININE Routine 06/29/2023 10:46 AM EDT Type 2 diabetes mellitus with other specified complication, without long-term current use of insulin (CMS/HCC) DIABETES EYE EXAM Routine 06/29/2023 BI MAMMOGRAM [...] Recently Relevant to Health Maintenance Results * POCT Glucose (06/09/2024 11:54 AM EDT) Pathologist [facility] Glucose Blood, POC 198 60 - 200 mg/dL QC Media Lot # [id number] Lot# Expiration Date 82,625 Blood Capillary blood specimen / Unknown 06/09/2024 11:54 AM EDT Fernandez Name POINT OF CARE TEST ENTER/EDIT OR DERABLES Final Result * CBC auto differential (04/26/2024 10:23 AM EST) Pathologist [facility] White Blood Count 7.5 4.8 - 10.8 X10*3/uL [facility] Red Blood Count 4.98 4.20 - 5.50 X10*6/uL [facility] Hemoglobin 14.0 12.0 - 16.0 g/dl [facility] Hematocrit 41.1 37.0 - 47.0 % [facility] Mean Corpuscular Volume 82.5 80.0 - 98.0 fL [facility] Mean Corpuscular Hemoglobin 28.1 27.0 - 33.0 pg [facility] Mean Corpuscular HGB Conc 34.1 31.0 - 35.0 g/dl [facility] Red Cell Distribution Width 13.2 11.0 - 16.0 % [facility] Platelet Count 281 160 - 400 X10*3/uL [facility] Mean Platelet Volume 10.2 9.4 - 12.3 fL [facility] Neutrophils Percent Auto 54.8 45 - 73 % [facility] Imm Gran Pct Auto 0.3 0.0 - 0.4 % [facility] Lymphocytes Percent Auto 34.4 20 - 40 % [facility] Monocytes Percent Auto 5.8 2 - 11 % [facility] Eosinophils Percent Auto 4.0 0 - 4 % [facility] Basophils Percent Auto 0.7 0 - 2 % [facility] NRBC Pct Auto 0.0 0.0 - 0.2 /100WBC [facility] Neutrophils Absolute Auto 4.1 2.0 - 8.3 x10*3/uL [facility] Imm Gran Abs Auto 0.02 0.00 - 0.03 X10*3/uL [facility] Lymphocytes Absolute Auto 2.6 1.2 - 4.9 X10*3/uL [facility] Monocytes Absolute Auto 0.4 0.1 - 1.2 X10*3/uL [facility] Eosinophils Absolute Auto 0.3 0.0 - 0.4 X10*3/uL [facility] Basophils Absolute Auto 0.1 0.0 - 0.2 X10*3/uL [facility] NRBC Abs Auto 0.000 0.0 - 0.012 X10*3/uL [facility] Blood Venous blood specimen / Unknown 04/26/2024 10:23 AM EST 04/26/2024 10:51 AM EST us Coriezbigniew Lilly [employer]TR[employer] MIX[employer] LAB BLOOD ORDERABLES Final Res ult [facility] [address] [place] [address] [phone] * (ABNORMAL) Comprehensive Metabolic Panel (04/26/2024 10:23 AM EST) Sodium 140 135 - 145 mmol/L [facility] Potassium 3.9 3.3 - 5.1 mmol/L [facility] Chloride 108 96 - 108 mmol/L [facility] Carbon Dioxide 28 22 - 29 mmol/L [facility] Anion Gap 8(L) 12 - 20 [facility] Urea Nitrogen (BUN) 9 9 - 16 mg/dL [facility] Creatinine, Serum 0.77 0.5 - 1.4 mg/dL [facility] Estimated Glomerular Filt Rate >60 [facility] Comment:Chronic Kidney Disea se: Estimated GFR < 60 mL/min/1.82k2Veaudl Kidney Disease: Estimated GFR < 15 mL/min/1.73m2 Glucose 97 60 - 115 mg/dL [facility] Calcium 9.5 8.4 - 10.2 mg/dL [facility] Bilirubin, Total 0.4 0.0 - 1.0 mg/dL [facility] Aspartate Amino Transferase 29 5 - 31 U/L [facility] Alanine Aminotransferase 26 0 - 31 U/L [facility] Total Protein 8.0 6.5 - 8.0 g/dL [facility] Albumin Level 4.2 3.5 - 5.0 g/dL [facility] Alkaline Phosphatase 86 39 - 117 U/L [facility] Blood Venous blood specimen / Unknown 04/26/2024 10:23 AM EST 04/26/2024 10:51 AM EST us Coriezbigniew Lilly EXTRACT MIXER LAB BLOOD ORDERABLES Final Res ult [facility] [address] [place] [address] [phone] * POCT HGB A1C (02/23/2024 10:22 AM EST) Hemoglobin A1C 5.4 4.0 - 6.0 % QC Media Lot # [id number] Lot# Expiration Date 785 Blood 02/23/2024 10:2 2 AM EST Corie Lilly EXTRACT MIXER POINT OF CARE TEST ENTER/EDIT ORDERABLES Final Result * (ABNORMAL) Lipid Panel, Standard (06/29/2023 10:48 AM EDT) Triglycerides 134 <150 mg/dL [facility] Comment:Desirable Triglyceri de: less than 150 mg/dLBorderline High Triglyceride 150-199 mg/dLHigh Triglyceride: 200-499 mg/dLVery High Triglyceride: greater than or equal to 5OO mg/dL Cholesterol 236(H) <200 mg/dL [facility] Comment:Desirable Cholestero l: less than 200 mg/dLBorderline High Cholesterol: 200-239 mg/dLHigh Cholesterol: greater than 239 mg/dL LDL Cholesterol Calculated 162(H) <100 mg/dL [facility] Comment:Desirable LDL: less than 100 mg/dLNear Optimal/Above Optimal LDL: 110- 129 mg/dLBorderline High LDL: 130-159 mg/dLHigh LDL: 160-189 mg/dLVery High LDL: greater than or equal to 190 mg/dL HDL Cholesterol 48 >40 mg/dL [facility] Comment:Desirable HDL: great er than 40 mg/dL Note: This HDL assay may give artificially low results in patients with liver disease. Blood Venous blood specimen / Unknown 06/29/2023 10:48 AM EDT 06/29/2023 10:48 AM EDT Fernandez Stafford MD LAB BLOOD ORDERABLES Final Resul t [facility] [address] [place] [phone] * Albumin, Random Urine W/Creatinine (06/29/2023 10:46 AM EDT) Creatinine, Urine 85.72 mg/dL [facility] Microalbumin Urine <5.0 mg/L [facility] Microalbum Creatinine Ratio Ur TNP <30 ug/mg cr [facility] Comment:Unable to calculate albumin/creatinine ratio due to lowmicroalbumin or creatinine result. Urine (Urine, Random) 06/29/2023 10:46 AM EDT 06/29/2023 11:48 AM EDT us Fernandez Stafford MD LAB URINE ORDERABLES Final Resul t [facility] [address] [facility] [place] [address] [phone] * Hm Diabetes Eye Exam (06/29/2023) Eye Exam Normal Normal Fernandez Stafford MD HEALTH MAINTENANCE Final Result * BI Mammogram Screening Tomosynthesis Bilateral (06/18/2023 10:20 AM EDT) Anatomical Region Laterality Modality Breast Bilateral Mammography 06/18/2023 10:2 0 AM EDT Narrative 07/03/2023 10:18 PM EDT ? [facility] [place] ? [address] ?[place] [address] ? Mammography Report ? Signed ? Patient: Yeager,Edwina ?MR#: [id number] ?? [id number] ? : 1965 ?Acct:[id number] ? Age/Sex: 58 / F ?ADM Date: 03/29/24 ? Loc: HO.MAMMO ? Attending Dr: Saul Dobbins MD ? Ordering Physician: Saul Dobbins MD ?Results: 1Negativ ?? e ? Date of Service: 06/18/23 ?Follow Up: 1 Year From Orig ?? inal Mammogram ? Procedure(s): MM tomosynthesis screening BI ?? Accession Number(s): [id number] ? cc: Fernandez Stafford MD; Saul Dobbins MD ? EXAMINATION: ?? MM SCREENING DIGITAL BREAST TOMOSYNTHESIS, BILATERAL ? CLINICAL INFORMATION: ? Screening. Asymptomatic. ? COMPARISON: ?? Mammography: This study is compared with prior exams dating back to ?? 2017. ? TECHNIQUE: ?? Digital breast tomosynthesis is [...] by Pennie Patel MD in OV> ? 07/03/232213 ? DD/ ? TD/TT: ? Carpet Journeyman: ? Procedure Note Rudy Rangel - 07/03/2023 [facility] [address] [place] [address] Mammography Report Signed Patient: Armani Yeager#: [id number] : 1965Acct:[id number] Age/Sex: 58 / FADM Date: 06/18/23 Loc: HO.MAMMO Attending Dr: Saul Dobbins MD Ordering Physician: Saul Dobbins MDResults: 1Negativ e Date of Service: 06/18/23Follow Up: 1 Year From Orig inal Mammogram Procedure(s): MM tomosynthesis screening BI Accession Number(s): [id number] cc: Name,Fernandez BROWN; Saul Dobbins MD EXAMINATION: MM SCREENING [...] in OV> 07/03/23 2214 DD/ 1020 TD/TT: Carpet Journeyman: [facility] External Provider IMG BI PROCEDURES Final Result * Pap Smear (05/17/2023 10:56 AM EST) 05/17/2023 10:5 6 AM EST 05/18/2023 12:15 PM EST Narrative [facility] - 05/28/2023 12:06 PM EST ----- ------- Name: Edwina Yeager ?Age/Sex: 58/F ? : 1965 Unit#: [id number] ?? Attend Dr: Saul Dobbins MD ?Re05/17/23 ?Status: DEP REF ? Location: HO.LNP ?Disch: ? ----- ------- SPEC : [id number] ? RECD: 05/18/23-1214 ? STATUS: ??SOUT ? REQ NUM: [id number] ? NASREEN: 05/17/23-1055 ? SUBM DR: Saul Dobbins MD ? ENTERED: ??05/19/23 ?SP TYPE: Pap Smr ?OTHR DR: Fernandez Stafford MD ? ORDERED: ??Pap Smear ? Interpretation ?? Satisfactory for evaluation. ?? Atrophic. ?? Mild inflammation. ?? Negative for intraepithelial lesion or malignancy. ?HPV mRNA E6/E7: ?NOT DETECTED ? This assay detects E6/E7 viral messenger RNA (mRNA) from 14 high-risk HPV types (16, 18, ?? 31, 33, 35, 39, 45, 51, 52, 56, 58, 59, 66, 68) ?? HPV testing performed by [facility], [place], [place]. ??See reference laboratory ?? portion of the EMR for entire report. ?Clinical Information LMP: Postmenopausal Previous PAP test: 2021, Unknown findings ? Material Received ?? ThinPrep-Cervical Copies To: ?? Name,Fernandez BROWN ?? [address] ?? [place] [address] ?? [phone] ?? Saul Dobbins MD ?? [address] [place] [address] Dr. M[facility] ?? [place] [address] ?? [phone] ----- ------- Signed (signature on file) JIGAR Oro (ASCP) 05/28/23 1206 ? ----- ------- ? END OF REPORT ? us Generic External Data Provider LAB CYTOLOGY ORDE RABLES Final Result Performing Organization Address [facility] Co de Phone Number [facility] [address] [place] [phone] * HPV E6/E7 RFLX RAYMOND 16 18/45 (12/30/2021 3:27 PM EDT) Pathologist [facility] HPV 16 RNA TNP CONVERTED [facility] HPV 18/45 RNA TNP CONVER [employer] HPV E6 E7 ADD TNP CONVER [employer] HPV mRNA E6/E7 rflx Not Detected Not Detected CONVERTED [facility] Comment: Methodology: Director Of Mechanical Engineering-Mediated Amplification This assay detects E6/E7 viral messenger RNA (mRNA) from 14 high-risk HPV types (16,18,31,33,35,39,45,51,52,56,58,59,66,68). Cervical sources are required for HPV testing. If a vaginal source from a patient who has had a total hysterectomy with removal of cervix was submitted, please contact the testing laboratory for alternative testing options. For additional information, please refer to http://education.[employer]/faq/LXJ229a6 (This link if provided for information/ educational purposes only.) THIS TEST WAS PERFORMED AT: [facility] [address] [place] [address] FLO[address] [place], [place] ??[phone] YESSICA BURNETTE MD 12/30/2021 3:27 PM EDT Saul Dobbins MD HISTORICAL/NON ORDERABLE LABS Fi nal Result CONVERTED LEGACY LABS * HEPATITIS C AB W/REFL TO HCV RNA, QN, PCR (10/30/2020 4:14 PM EDT) HEPATITIS C ANTIBODY NON-REACT SHWETA NON-REACT SHWETA [facility] INDEX 0.04 <1.00 [facility] Comment: ?? HCV antibody was non-reactive. There is no laboratory ?? evidence of HCV infection. ?? In most cases, no further action is required. However, if recent HCV exposure is suspected, a test for HCV RNA (test code 33089) is suggested. ?? For additional information please refer to http://education.[employer]/faq/WCW53g5 (This link is being provided for informational/ educational purposes only.) ?? 10/30/2020 4:14 PM EDT us Fernandez Name HISTORICAL/NON ORDERABLE LABS Fi nal Result Performing Organization Address City/[facility] Co de Phone Number [facility] [address] from Last 3 Months or Most Recently Relevant to Health Maintenance [place] [address] [place] [address] C3 HSN FULL Care Teams Research Instructor Relationship Specialty Start Date End Date Name, MD Fernandez [address] [place] [phone] PCP - General Family Medicine 07/19/15
--- OUTSIDE RECORDS SUMMARY | 2024-06-20 08:26 | XMS_ITS | Encounter Summary ---
Author Organization [facility] Address [address] [place] [address] Care Team Providers Care House Cleaner Supervisor Name Role Phone Name, Fernandez BROWN Primary Care Provider Unavailabl e Encounter Details Date Type Department Care Team Description 01/08/2014 Shape Brick Molder Report Medical Records [address] [place] [address] Kylah Roland NP Social History Tobacco Use [...] on filedocumented in this encounter Care Teams House Cleaner Supervisor Relationship Specialty Start Date End Date Name, MD Fernandez PCP - General 10/10/09 documented as of this encounter
--- OUTSIDE RECORDS SUMMARY | 2024-06-20 08:26 | XMS_ITS | Encounter Summary ---
Author Organization [facility] Address [address] [facility] [address] [place] [address] Care Team Providers Care Music Autographer Name Role Phone Name, Fernandez BROWN Primary Care Provider [phone] Reason for Visit * Reason Onset Date Comments Med Refill 10/08/2023 Encounter Details Date Type Department Care Team ([facility] st Contact Info) Description 10/08/2023 Refill [facility] [address] [place], [place] [phone] Name, MD Fernandez [address] [place] [address] Social History Tobacco Use Types Packs/Day Years [...] documented as of this encounter Care Teams Music Autographer Relationship Specialty Start Date End Date Name, MD Fernandez [address] [place] [address] PCP - General Family Medicine 07/19/15 documented as of this encounter
--- OUTSIDE RECORDS SUMMARY | 2024-06-20 08:26 | XMS_ITS | Encounter Summary ---
Author Organization [facility] Address [address] [place] [address] Care Team Providers Care Pneumatic Systems Operator Name Role Phone Name, Fernandez BROWN Primary Care Provider Unavailabl e Encounter Details Date Type Department Care Team Description 04/08/2011 Floral Manager Report Medical Records [address] [place] [address] Kylah Roland NP Social History Tobacco Use [...] on filedocumented in this encounter Care Teams Pneumatic Systems Operator Relationship Specialty Start Date End Date Name, MD Fernandez PCP - General 10/10/09 documented as of this encounter
--- OUTSIDE RECORDS SUMMARY | 2024-06-20 08:26 | XMS_ITS | Encounter Summary ---
Author Organization [facility] Address [address] [place] [address] Care Team Providers Care Treer Name Role Phone Name, Fernandez BROWN Primary Care Provider Unavailabl e Reason for Referral * Specialist (Urgent) - Authorized/Booked Specialty Diagnoses / Procedures Referred By Contac t Referred To Contact General Surgery Diagnoses Abnormal mammogram Procedures REFERRAL TO GENERAL SURGERY Jose Cadena MD [address] [place] [phone] Gen Surg/[place] [address] [place] [address] Referral ID Status Reason Start Date Expiration Date V isits Requested Visits Authorized NOT REQUIRED Authorized/ Booked 12/18/2009 12/18/2010 1 1 Encounter Details Date Type Department Care Team Description 12/18/2009 Orders Only Adult Medicine B - [address] [address] Jose Cadena MD Abnormal Mammogram (Primary Dx) [...] unspecified documented in this encounter Care Teams Treer Relationship Specialty Start Date End Date Name, MD Fernandez PCP - General 10/10/09 documented as of this encounter
--- OUTSIDE RECORDS SUMMARY | 2024-06-20 08:26 | XMS_ITS | Encounter Summary ---
Author Organization [facility] Address [address] [place] [address] Care Team Providers Care Youth Probation Officer Name Role Phone Name, Fernandez BROWN Primary Care Provider Unavailabl e Encounter Details Date Type Department Care Team Description 12/10/2014 Release of Information Medical Records [address] [place] [id number] Abstract, Provider Social History Tobacco Use Types Packs/Day Years [...] on filedocumented in this encounter Care Teams Youth Probation Officer Relationship Specialty Start Date End Date Name, MD Fernandez PCP - General 10/10/09 documented as of this encounter
--- OUTSIDE RECORDS SUMMARY | 2024-06-20 08:26 | XMS_ITS | Encounter Summary ---
Author Organization [employer] [facility] Address [address] 7[address] [place] [address] Care Team Providers Care Account Retention Representative Name Role Phone Name, Fernandez BROWN Primary Care Provider [phone] Reason for Visit * Reason Comments Med Refill Encounter Details Date Type Department Care Team ([facility] st Contact Info) Description 01/22/2023 Refill [facility] [address] [place], [place] [phone] Abigail Sullivan MD [address] [place], [place] [phone] Hypertension, unspecified type Social History Tobacco Use [...] documented as of this encounter Care Teams Account Retention Representative Relationship Specialty Start Date End Date Name, MD Fernandez [address] [place] [address] PCP - General Family Medicine 07/19/15 documented as of this encounter
--- OUTSIDE RECORDS SUMMARY | 2024-06-20 08:26 | XMS_ITS | Encounter Summary ---
Author Organization [facility] Address [address] [place] [address] Care Team Providers Care Supervisor Printing Shop Name Role Phone Name, Fernandez BROWN Primary Care Provider Unavailabl e Encounter Details Date Type Department Care Team Description 12/13/2009 Scheduling Assistant Report Medical Records [address] [place] [address] Kylah Roland NP Social History Tobacco Use [...] filedocumented in this encounter Care Teams Supervisor Printing Shop Relationship Specialty Start Date End Date Name, MD Fernandez PCP - General 10/10/09 documented as of this encounter
--- OUTSIDE RECORDS SUMMARY | 2024-06-20 08:26 | XMS_ITS | Encounter Summary ---
Author Organization [facility] Address [address] [place] [address] Care Team Providers Care Toy Mechanic Name Role Phone Name, Fernandez BROWN Primary Care Provider Unavailabl e Encounter Details Date Type Department Care Team Description 01/04/2016 Release of Information Medical Records [address] [place] [id number] Abstract, Provider Social History Tobacco Use Types [...] on filedocumented in this encounter Care Teams Toy Mechanic Relationship Specialty Start Date End Date Name, MD Fernandez PCP - General 10/10/09 documented as of this encounter
--- OUTSIDE RECORDS SUMMARY | 2024-06-20 08:26 | XMS_ITS | Clinical Summary ---
Author Organization [facility] Address [address] [place] [address] Care Team Providers Care Flotation Tank Operator Name Role Phone Name, Fernandez BROWN Primary Care Provider Unavailabl e Allergies Active Allergy Reactions Severity Noted Date Comments Iv Contrast Dye 04/04/2010 Patient has nausa/vomiting and chills after CT with IV contrast and no rash. Wheat 02/25/2010 Unclear on reaction; Diagnosed by Grain Elevator Man Dr. Muniz Medications Medication Sig Dispensed Refills Start Date End Date Status cetirizine (ZYRTEC) 10 MG tablet Take 1 Tab by mouth daily. 0 Active glucose monitoring kit (FREESTYLE) monitoring kit Use to test bs daily 1 Each 0 11/17/2010 Active FreeStyle Lancets MISC Use once daily to test bs 50 Each 5 11/17/2010 Active fluticasone (FLONASE) 50 MCG/ACT nasal spray 1 [place] by Nasal route daily. 1 Bottle 3 08/16/2012 Active acetaminophen (TYLENOL) 500 MG tablet Take 1 Tab by mouth 3 times daily as needed for Pain. 84 tablet 0 12/19/2012 Active ALBUTEROL SULFATE (PROAIR HFA) 108 (90 BASE) MCG/ACT AERSIndications:A sthma,Allergic rhinitis,Seizures (HCC),Diabetes mellitus type 2 in obese Inhale 2 Puffs into the lungs 4 times daily as needed for Cough or Wheezing. 1 Inhaler 5 06/05/2013 Active fluticasone (FLOVENT HFA) 110 MCG/ACT inhalerIndication s:Asthma,Allergic rhinitis,Seizures (HCC),Diabetes mellitus type 2 in obese Inhale 1 Puff into the lungs 2 times daily. 1 Inhaler 1 06/05/2013 Active carbamazepine (CARBATROL) 300 MG 12 hr capsuleIndication s:Seizures (HCC) Take 2 Caps by mouth 2 times daily. 120 Cap 11 10/05/2013 Active ibuprofen (ADVIL,MOTRIN) 600 MG tablet Take 600 mg by mouth every 6 hours as needed. 0 Active ketoconazole (NIZORAL) 2 % cream Apply twice daily to affected rash 15 g 5 11/02/2014 Active fenofibrate micronized (LOFIBRA) 134 MG capsule TAKE 1 CAPSULE BY MOUTH EVERY MORNING (BEFORE BREAKFAST). 30 Cap 4 01/02/2015 Active glucose monitoring kit (FREESTYLE) monitoring kit Use once a day 1 Kit 0 03/01/2015 Active FREESTYLE LANCETS Misc Use once a day 100 Each 11 03/01/2015 Active FREESTYLE LITE strip Use once a day 200 Strip 2 03/01/2015 Active omeprazole (PRILOSEC) 20 MG capsule TOME MARVIN CAPSULA POR VIA ORAL [place] 30 Cap 5 03/05/2015 Active metformin (GLUCOPHAGE) 500 MG tablet TAKE 1 TABLET BY MOUTH 2 TIMES DAILY (WITH MEALS). 60 Tab 1 2015 Active tacrolimus (PROTOPIC) 0.1 % ointment Apply to affected area BID prn 30 g 2 10/19/2019 Active omeprazole (PRILOSEC OTC) 20 MG tablet Take 1 Tab by mouth daily. 30 Tab 3 06/20/2014 10/31/2014 Discontinued (reorder) Active Problems Problem Noted Date History of bariatric surgery 10/21/2017 Overview: Sleeve gastrectomy GERD (gastroesophageal reflux disease) 0 10/21/2017 Obesity, Class I, BMI 30-34.9 09/30/2017 Diabetes mellitus type 2, uncomplicated 12/06/2014 Asthma 06/05/2013 Allergic rhinitis 11/17/2010 Hypertriglyceridemia 11/12/2009 Seizures Resolved Problems Problem Noted Date Resolved Date Impaired glucose tolerance 10/05/201310/21 Lump below right axilla 03/06/2010 11/18/19 11 Renal mass 12/27/2009 04/04/2010 LFTs abnormal 12/13/2009 04/04/2010 Obesity 11/12/2009 05/29/2011 Diabetes mellitus type 2 in obese 11/12/2009 10/05/2013 Asthma 11/12/2009 05/29/2011 Overview: Mild. Rarely uses albuterol Diabetes mellitus 11/12/2009 Immunizations Name Administration Dates Next Due Influenza (> 6 Months) 12/19/2012,04/15/2012 Tdap 02/25/2010 Family History Relation Name Status Comments Brother [...] Assigned at Date Recorded Not on file Last Filed Vital Signs Vital Sign Reading Time Taken Comments Blood Pressure 122/76 10/19/2019 10:04 AM EDT Pulse 72 09/30/2017 10:33 AM EDT Temperature 36.5 ??C (97.7 ??F) 10/19/2019 10:04 AM E DT Respiratory Rate 16 01/04/2015 2:30 PM EDT Oxygen Saturation 97% 06/05/2013 11:04 AM EDT Inhaled Oxygen Concentration - - Weight 89.4 kg (197 lb 3.2 oz) 10/19/2019 10:04 AM EDT Height 157.5 cm (5' 2 ) 10/19/2019 10:04 AM EDT Body Mass Index 36.07 10/19/2019 10:04 AM EDT Plan of Treatment Health Maintenance Due Date Last Done Comments Covid-19 Vaccine (#1) 1965 DIABETES: ANNUAL EYE EXAM 06/16/20132012 (External Completion), 09/03/2009 (External Completion) DIABETES: ANNUAL FOOT EXAM 08/16/2013 08/16/2012, COLON CANCER SCREENING 2014 SHINGLES VACCINE (1 of 2) 2014 MAMMOGRAM 12/22/2014 12/22/2013, 03/11/2011, 06/19/2010, Additional history exists DIABETES: BLOOD SUGAR CONTRO L TEST (HGBA1C) 04/13/2015 01/11/2015, 07/18/2014, 04/10/2014, Additional history exists BASELINE HEALTH EXAM 40-64 05/19/2015 05/19/2013 DIABETES/HEART DISEASE: LAURA MOROCHO CHOLESTEROL (LDL) 01/12/2016 01/11/2015, 07/18/2014, 04/10/2014, Additional history exists DIABETES: ANNUAL URINE PROTE IN TEST (MICROALBUMIN) 01/12/2016 01/11/2015, 05/19/2013, 12/19/2012, Additional history exists CERVICAL CANCER SCREENING 05/19/2016 05/19/2013 DTAP/TDAP/TD (2 - Td or Tdap) 02/26/2020 02/25/2010 INFLUENZA (#1) 2023 12/19/2012, 04/15/2012 BMI CHECK/ADVISE 03/22/2024 09/30/2017, , 05/19/2013 PNEUMOCOCCAL VACCINE FOR HIG H RISK PATIENTS (#2) 2029 12/19/2012 HEPATITIS C SCREENING Completed 05/19/2013, 010 Care Teams Flotation Tank Operator Relationship Specialty Start Date End Date Name, MD Fernandez PCP - General 10/10/09
--- OUTSIDE RECORDS SUMMARY | 2024-06-20 08:26 | XMS_ITS | Clinical Summary ---
Author Organization [facility] Address [address] [place] [address] Care Team Providers Care Wet Room Worker Name Role Phone Unavailable Primary Care Provider Unavailabl e Source Comments PLEASE NOTE, if this patient is a minor, it may be UNLAWFUL to discuss sensitive information that is contained in these records (such as FAMILY PLANNING, MENTAL HEALTH or SUBSTANCE ABUSE) with the minor patient's parent or other person without the patient's specific authorization.[facility] Immunizations Immunization Administration Dates Next Due PFIZER COVID VACCINE, [...] HIV Screening 1979 Hypertension Screening (#1) 1982 Cervical Cancer Screening 1985 Pap Smear 1985 Breast Cancer Screening (Mammogram) 2004 CT Colonography 2009 Colonoscopy 2009 Colorectal Cancer Screening 2009 FIT/gFOBT 2009 Fecal DNA 2009 Flexible Sigmoidoscopy 2009 Imm-Zoster, Recombinant (1 of 2) 2014 Imm-DTaP/Tdap/Td (2 - Td or Tdap) 02/26/2020 02/25/2010 Ixe-CLMLG-11 ( season) 2023 12/01/2020, 06/30/2020, 06/09/2020 Imm-Influenza (#1) 2023 01/30/2020, 0 12/17/2017, 12/29/2016, Additional history exists Alcohol and Drug Screen 03/22/2024 Depression Annual Screen 03/22/2024 Cervical Ablation/Cold-Knife Conization Discontinued Cervical Cryotherapy Discontinued Colposcopy Discontinued Endometrial Biopsy Discontinued Excision/Leep Discontinued HPV Genotyping Discontinued Imm-Hepatitis B Aged Out No longer el igible based on patient's age to complete this topic Vaginal Pap Discontinued Vulvoscopy Discontinued Insurance C3 [facility]
--- OUTSIDE RECORDS SUMMARY | 2024-06-20 08:26 | XMS_ITS | Encounter Summary ---
Author Organization [employer] [facility] Address [address] 7t [place] [address] Care Team Providers Care Hospital Plan Administrator Name Role Phone Name, Fernandez BROWN Primary Care Provider [phone] Reason for Visit * Reason Onset Date Comments Prior Authorization 06/19/2024 Encounter Details Date Type Department Care Team ([facility] st Contact Info) Description 06/19/2024 Telephone [facility] MEDICINE [address] [place] [address] Name, MD Fernandez [address] [place] [address] Prior Authorization Social History Tobacco Use Types Packs/Day Years [...] encounter Miscellaneous Notes * Telephone Encounter - Naveen Tellez - 06/19/2024 11:15 AM EDT Tc from pt requesting a PA for medication Tirzepatide (Mounjaro) 5 MG/0.5ML solution auto-injector. Contact pt at [phone] documented in this encounter Plan of Treatment Not on file documented as of this encounter Visit Diagnoses Not on filedocumented in this encounter Additional Health Concerns Assessment Noted Time PHQ-9 Depression Total Score: 5 09/05/19 23 10:02 AM EDT documented as of this encounter Care Teams Hospital Plan Administrator Relationship Specialty Start Date End Date Name, MD Fernandez [address] [place] [address] PCP - General Family Medicine 07/19/15 documented as of this encounter
--- OUTSIDE RECORDS SUMMARY | 2024-06-20 08:26 | XMS_ITS | Clinical Summary ---
Author Organization [facility] Address [address] [place] [address] Care Team Providers Care Door Cutter Name Role Phone Name, Fernandez BROWN Primary Care Provider Surgical History Surgery Date Site/Laterality Comments SECTION PROCEDURE: HISTORICAL EXCISION BENIGN SKIN LESION TRUNK / ARM / LEG -[id number] PROCEDURE: [place] EXCISION TUMOR SOFT TISSUE BACK/FLANK SUBQ <3CM; [...] drink = 0.6 oz pur e alcohol) Comments Unknown Sex and Gender Information Value Date Recorded Sex Assigned at Not on file Legal Sex Female 4:52 PM EST Gender Identity Not on file Sexual Orientation Not on file Obstetrics History Plan of Treatment Health Maintenance Due Date Last Done Comments Breast Cancer Screening 1964 Cervical Cancer Screening: P ap Smear 1985 Pneumococcal Vaccine: 50+ Years (1 of 1 - PCV) 2014 Zoster Vaccines (1 of 2) 2014 DTaP,Tdap,and [...] patient's age to complete this topic Hepatitis B Vaccines Aged Out No long er eligible [...] patient's age to complete this topic Meningococcal B Vacine Aged Out No lo nger eligible based on patient's age to complete [...] age to complete this topic Care Teams Door Cutter Relationship Specialty Start Date End Date Name, MD Fernandez [address] [place], [place] PCP - General 10/10/09
--- OUTSIDE RECORDS SUMMARY | 2024-06-20 08:26 | XMS_ITS | Encounter Summary ---
Author Organization [facility] Address [address] [facility] [address] 7t [place] [address] Care Team Providers Care Sports Teacher Name Role Phone Name, Fernandez BROWN Primary Care Provider [phone] Encounter Details Date Type Department Care Team (Late st Contact Info) Description 04/14/2022 Orders Only [facility] MEDICINE [address] [place] [address] Ada Concepcion LPN Social History Tobacco Use [...] on filedocumented in this encounter Care Teams Sports Teacher Relationship Specialty Start Date End Date Name, MD Fernandez [address] [place] [address] PCP - General Family Medicine 07/19/15 documented as of this encounter
--- OUTSIDE RECORDS SUMMARY | 2024-06-20 08:26 | XMS_ITS | Encounter Summary ---
Author Organization [employer] [facility] Address [address] [place] [address] Care Team Providers Care Pocket Cutter Name Role Phone Fernandez Stafford MD Primary Care Provider Unavailabl e Encounter Details Date Type Department Care Team Description 10/11/2013 Telephone Adult [address] [address] Name, MD Fernandez Social History Tobacco Use [...] on filedocumented in this encounter Care Teams Pocket Cutter Relationship Specialty Start Date End Date Fernandez Stafford MD PCP - General 10/10/09 documented as of this encounter
--- OUTSIDE RECORDS SUMMARY | 2024-06-20 08:27 | XMS_ITS | Encounter Summary ---
Author Organization [employer] [facility] Address [address] [facility] 7t [place] [address] Care Team Providers Care Field Representative Name Role Phone Name, Fernandez BROWN Primary Care Provider [phone] Encounter Details Date Type Department Care Team (Latest Contact Info) Description 09/09/2018 Abstract [facility] Dental, Provider, DDS Social History Tobacco [...] on filedocumented in this encounter Care Teams Field Representative Relationship Specialty Start Date End Date Name, MD Fernandez [address] [place] [address] PCP - General Family Medicine 07/19/15 documented as of this encounter
--- OUTSIDE RECORDS SUMMARY | 2024-06-20 08:27 | XMS_ITS | Encounter Summary ---
Author Organization [facility] Address [address] [place] [address] Care Team Providers Care Lieutenant Governor Name Role Phone Name, Fernandez BROWN Primary Care Provider Unavailabl e Encounter Details Date Type Department Care Team Description 04/11/2010 New Accounts Banking Representative Report Medical Records [address] [place] [address] Kylah Roland NP Social History Tobacco Use [...] on filedocumented in this encounter Care Teams Lieutenant Governor Relationship Specialty Start Date End Date Name, MD Fernandez PCP - General 10/10/09 documented as of this encounter
[2024-06-20 09:57] LABS: Cholesterol 199 mg/dL (<200); HDL Cholesterol 39 mg/dL (>40); LDL Cholesterol Calculated 106 mg/dL (<100); Triglycerides 273 mg/dL (<150)
== END 2024-06-20 08:10 | disposition home or self-care (01) ==
LOC: HO.LAB 08:09
PROVIDERS: PCP Internal Medicine Geriatric Medicine; Visit Provider Internal Medicine Geriatric Medicine
DX: Z79.899 Other long term (current) drug therapy (principal)
CPT/HCPCS: 36415; 80061

== ENCOUNTER 2024-07-25 10:07 | Outpatient (AMB) | payer MEDICAID, SELFPAY ==
--- NOTE | 2024-07-25 10:13 | MHC.OFFVIS ---
Vital Signs 07/25/24 10:15 Height 5 ft 2 in Weight 180 lb BMI 32.9 BP 118/76 Intake Visit Reasons: annual Talent Acquisition Manager Required: Yes Talent Acquisition Manager Language: Rewards Consultant Services: Talent Acquisition Manager Present (in person) Talent Acquisition Manager Name: Danielle MULTANI Information Interpreted: non-clinical & clinical Home Housekeeper: Home Housekeeper Present (Danielle MULTANI) Accompanied by: Self / Same As Patient Allergies No Known Allergies Allergy (Verified 07/25/24 10:16) Post menopausal: Yes HPI Comments Details: Presenting for annual exam. No complaints. Last Pap/HPV was negative in 05/15 Last Mammogram was BI-RADS 1 in 06/12 The patient is scheduled for screening Colonoscopy in few weeks [facility] Medical History (Updated 07/25/24 @ 10:32 by Saul Dobbins MD) Dysplasia of cervix, low grade (OLIVER 1) Hypertension Asthma Elevated cholesterol Seizure Rotator cuff impingement syndrome of left shoulder Hyperglycemia Type 2 diabetes mellitus Surgical History H/O tubal ligation Gastric bypass status for obesity Hx of section Social History Are you a primary rn home care to a significant other at home: No Do you presently have visiting nurse or other home services: No Patient Tobacco Use Status: Never used Tobacco Current occupational status: unemployed 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 Female Reproductive History Menstrual Age of Menarche: 11 control method: permanent sterilization Date of last pap smear: 05/18/23 Date of Mammogram: 06/18/23 Review of Systems Const All systems reviewed & are unremarkable except as noted in HPI and below Card Reports as per HPI Resp Reports as per HPI GI Reports as per HPI and Reports no additional complaints Reports as per HPI Physical Exam Vital Signs: Last Vital Signs BP 118/76 07/25/24 10:15 BMI result Body Mass Index 32.9 Const General: cooperative, healthy appearing and comfortable Chest Chest palpation & inspection: normal inspection of the chest and normal palpation of entire chest wall Breast/axilla inspection: normal inspection of the breasts and normal inspection of the axillae Breast/axilla palpation: normal palpation of the breasts, normal palpation of the axillae and no axillary lymphadenopathy Resp Effort & Inspection: normal respiratory effort Auscultation: clear to auscultation bilaterally Percussion: percussion normal Cardio Palpation: normal PMI Rate: regular rate Rhythm: regular rhythm Heart sounds: no murmurs and no rubs Peripheral pulses: Peripheral pulses 2+ throughout GI Inspection: Yes normal to inspection Palpation (GI): Soft to palpation, nontender, no guarding, not rigid and No hepatosplenomegaly present Percussion: Yes normal to percussion Auscultation: normal bowel sounds Rectal Exam - Female: deferred General: Yes bladder normal to palpation External Female Exam: No lesion Speculum Exam - Vagina: normal appearance of the vagina, normal palpation, normal vaginal discharge and not erythematous Speculum Exam - Cervix: normal appearance of the cervix and normal palpation Bimanual exam- vagina & uterus: normal bimanual exam, normal palpation, uterine size normal, bladder normal to palpation, consistency normal and normal palpation Bimanual Exam- Adnexa, other: normal adnexae, no masses and no tenderness Assessment & Plan Assessment & Plan (1) Well woman exam: Comment: 02/10 OLIVER 1 05/15 co testing negative Code(s): Z01.419 - Encounter for gynecological examination (general) (routine) without abnormal findings Category: Medical Plan: Co testing done. Counseled the patient about the recommended dietary allowance of 1200 mg of Calcium & 600 IU of vitamin D. Mammogram ordered. The patient is scheduled with GI for screening colonoscopy in few weeks. The patient was instructed to perform monthly self-breast exams and schedule annual exam in a year. All questions answered and the patient verbalized understanding. Orders: Orders MM tomosynthesis screening BI Today Z12.31 - Encounter for screening mammogram for malignant neoplasm of breast Coding Level of Care Code Est Pt Prev Care 40-64y([address]) Diagnoses Well woman exam Z01.419
[2024-07-25 10:15] VITALS: BP 118/76; BMI 32.9
--- OUTSIDE RECORDS SUMMARY | 2024-07-25 11:30 | XMS_ITS | Clinical Summary ---
Author Organization [facility] Address [address] [place] [address] Care Team Providers Care Noteman Name Role Phone Unavailable Primary Care Provider [...] Health Maintenance Due Date Last Done Comments Anxiety Screening 1965 Diabetes Screening 1965 HPV Screening 1965 Hepatitis [...] (2 - Td or Tdap) 02/26/2020 02/25/2010 Gys-ZBRSH-81 ( season) 2023 12/01/2020, 06/30/2020, 06/09/2020 Imm-Influenza [...] Vaginal Pap Discontinued Vulvoscopy Discontinued Insurance C[facility]
--- OUTSIDE RECORDS SUMMARY | 2024-07-25 11:30 | XMS_ITS | Clinical Summary ---
Author Organization [employer] [facility] Address [address] [place] [address] Care Team Providers Care Welding Machine Operator Ultrasonic Name Role Phone Name, Fernandez BROWN Primary Care Provider [phone] Surgical History Surgery Date Site/Laterality Comments SECTION PROCEDURE: HISTORICAL EXCISION BENIGN SKIN LESION TRUNK / ARM / LEG -[id number] PROCEDURE: UT EXCISION TUMOR SOFT TISSUE BACK/FLANK SUBQ <3CM; COMMENT: below right axilla OTHER SURGICAL HISTORY PROCEDURE: ---- OTHER ----; COMMENT: sleeve gastrectomy Medical History Medical History Date Comments Seizures (CMS/HCC V24, CMS/HCC V28) DX:Seizures ([facility]) Asthma, mild persistent DX:Asthm a, mild persistent [...] Td or Tdap) 02/26/2020 02/25/2010 COVID-19 Vaccine ( - 2023-2 5 season) 2023 Influenza Vaccine (Season Ended) 2024 12/19/2012, 04/15/2012 RSV Immunization Adult Patients (1 - 1-dose 75+ series) 2039 HIB [...] age to complete this topic Meningococcal B Vaccine Aged Out No l onger eligible based on patient's age to complete [...] age to complete this topic Care Teams Welding Machine Operator Ultrasonic Relationship Specialty Start Date End Date Name, MD Fernandez [address] [place], [place] PCP - General 10/10/09
== END 2024-07-25 10:38 | disposition home or self-care (01) ==
LOC: HO.HWS 10:07
PROVIDERS: PCP Internal Medicine Geriatric Medicine; Visit Provider Obstetrics & Gynecology
DX: Z01.419 Encounter for gynecological examination (general) (routine) without abnormal findings (principal)
CPT/HCPCS: 99396; 99459

== ENCOUNTER 2024-07-25 10:07 | Outpatient (REF) | payer MEDICAID, SELFPAY ==
--- OUTSIDE RECORDS SUMMARY | 2024-07-25 12:40 | XMS_ITS | Encounter Summary ---
Author Organization [facility] Address [address] [place] [address] Care Team Providers Care Chemist Inorganic Name Role Phone Fernandez Stafford MD Primary Care Provider Unavailabl e Encounter Details Date Type Department Care Team Description 10/22/2014 Pt. Non Urgent Medic al Question Adult Medicine [address] [address] Fernandez Stafford MD Social History Tobacco Use [...] on filedocumented in this encounter Care Teams Chemist Inorganic Relationship Specialty Start Date End Date Fernandez Stafford MD PCP - General 10/10/09 documented as of this encounter
--- OUTSIDE RECORDS SUMMARY | 2024-07-25 12:40 | XMS_ITS | Encounter Summary ---
Author Organization [facility] Address [address] [place] [address] Care Team Providers Care Middle [employer] Principal Name Role Phone Name, Fernandez BROWN Primary Care Provider Unavailabl e Encounter Details Date Type Department Care Team Description 01/04/2016 Release of Information Medical Records [address] [place] [id number] Abstract, Provider Social History Tobacco Use Types [...] on filedocumented in this encounter Care Teams Middle School Principal Relationship Specialty Start Date End Date Name, MD Fernandez PCP - General 10/10/09 documented as of this encounter
--- OUTSIDE RECORDS SUMMARY | 2024-07-25 12:40 | XMS_ITS | Encounter Summary ---
Author Organization [facility] Address [address] [place] [address] Care Team Providers Care Accounting Representative Name Role Phone Fernandez Stafford MD Primary Care Provider Unavailabl e Reason for Visit * Reason Onset Date Comments Medication 10/11/2013 Encounter Details Date Type Department Care Team Description 10/11/2013 Telephone Adult Medicine [address] [address] Fernandez Stafford MD Medication Social History Tobacco [...] THEY ARE CONFUSED AND PATIENT DOES SPEAK BELIZEAN, NEEDS SOMEONE TO CALL WHO SPEAKS ANGOLAN What is the problem?: Two medications from last visit with Dr. Stafford did were not received at [facility] Is the patient calling about the problem? NO If the patient is not the caller who is? SON - Not on verbal Is this a NEW medication?: YES How long has the patient been taking this medication? Who prescribed this medication for the patient? Fernandez Stafford Who is patients PCP?: Fernandez Stafford Payor: [employer] FFS / Plan: [employer] / Product Type: MEDICAID RISK documented in this encounter Plan of Treatment Not on file documented as of this encounter Visit Diagnoses Not on filedocumented in this encounter Care Teams Accounting Representative Relationship Specialty Start Date End Date Name, MD Fernandez PCP - General 10/10/09 documented as of this encounter
--- OUTSIDE RECORDS SUMMARY | 2024-07-25 12:40 | XMS_ITS | Encounter Summary ---
Author Organization [facility] Address [address] [place] [address] Care Team Providers Care Aquatic Life Laborer Name Role Phone Name, Fernandez BROWN Primary Care Provider Unavailabl e Reason for Visit * Reason Comments E-prescribe Rx Request Encounter Details Date Type Department Care Team Description 05/04/2015 Refill Adult Medicine [address] [address] Adele Rosales PA-C E-prescribe Rx Request Social [...] further refills to come from PCP at [facility] * Telephone Encounter - Ade Sarmiento M.A. [...] [place], but needs refills until seen in [place] * Telephone Encounter - Ade Sarmiento M.A. [...] an upcoming appointment? No-unable to reach left [facility] to call for appointment due to refill request. Appt due needs to change pcp (THE MEDICATION REQUESTED IS ON THE MED LIST ABOVE) All of the medications requested were on the CURRENT MEDS list Did you check the Pharmacy information above?: YES Patient wants: 30 -day supply Is this a mail order prescription request ? NO Patients current insurance carrier is: Payor: [facility] MEDICAID / Plan: [facility] MEDICAID O $0 MARILEE / Product Type: HMO [id number] documented in this encounter Plan of Treatment Not on file documented as of this encounter Visit Diagnoses Not on filedocumented in this encounter Care Teams Aquatic Life Laborer Relationship Specialty Start Date End Date Name, MD Fernandez PCP - General 10/10/09 documented as of this encounter
--- OUTSIDE RECORDS SUMMARY | 2024-07-25 12:40 | XMS_ITS | Clinical Summary ---
Author Organization [employer] Address [address] [facility] 7t [place] [address] Care Team Providers Care Mail Carrier Name Role Phone Name, Fernandez BROWN Primary Care Provider [phone] Allergies Active Allergy Reactions Criticality Noted Date Comments Grass Pollen(K-O-R-T-Swt Willis) 03/13/2019 Iodinated Contrast Media 04/04/2010 Patient has nausa/vomiting and chills after CT with IV contrast and no rash. Molds & Smuts 03/13/2019 Wheat 02/25/2010 Unclear on reaction; Diagnosed by Fare Enforcement Officer Dr. Muniz Medications fluticasone (Flonase) 50 MCG/ACT nasal spray SPRAY 1 SPRAY INTO EACH NOSTRIL EVERY DAY 03/26/19 23 Active glucose blood (FREESTYLE LITE) test stripIndicatio ns:Type 2 diabetes mellitus with other specified complication, without long-term current use of insulin ([facility]) Ust 1 strip to skin route 3 times every day 100 each 09/05/19 23 Active meclizine (Antivert) 25 MG tablet TAKE 1 TABLET BY MOUTH IF NEEDED IN THE MORNING AT NOON AND AT BEDTIME FOR DIZZINESS UP TO 10 DAYS 30 tablet 06/14/19 24 Active metFORMIN (Glucophage) 500 MG tablet Take 1 tablet (500 mg) by mouth with breakfast and with evening meal. 180 tablet 1 09/20/19 24 Active carBAMazepine ER (Carbatrol) 300 MG 12 hr capsule Take 1 capsule (300 mg) by mouth every 12 (twelve) hours. 60 capsule 11 09/20/19 24 2024 Active sertraline (Zoloft) 25 MG tablet take 1 tablet by oral route every day for week and then 2 tabs daily 60 tablet 11 09/20/19 24 Active D3-1000 25 MCG (1000 UT) capsule TAKE 1 CAPSULE BY MOUTH EVERY DAY IN THE MORNING 90 capsule 3 12/27/19 24 Active losartan (Cozaar) 25 MG tabletIndicati ons:Type 2 diabetes mellitus with other specified complication, without long-term current use of insulin (CMS/HCC),Hype rtension, unspecified type TAKE 1 TABLET BY [...] ITCHING 90 tablet 3 04/11/19 25 Active betamethasone, augmented, (Diprolene) 0.05 % ointmentIndica tions:Nummular dermatitis Apply topically 2 times daily. to affected area 15 g 06/10/19 25 Active albuterol (2.5 MG/3ML) 0.083% nebulizer solution Take 3 mL (2.5 mg) by nebulization every 6 (six) hours if needed for wheezing. 75 mL 06/10/19 25 2025 Active fluticasone furoate (Arnuity Ellipta) 100 MCG/ACT inhaler Inhale 1 puff Once per day. Rinse mouth with water after use to reduce aftertaste and incidence of candidiasis. Do not swallow. 1 each 06/10/19 25 2025 Active albuterol 108 (90 Base) MCG/ACT inhaler Inhale 1 puff every 6 (six) hours if needed for wheezing. 18 g 07/01/19 25 2025 Active albuterol 108 (90 Base) MCG/ACT inhaler Inhale 2 puffs every 6 (six) hours if needed for wheezing. 18 g 09/20/19 24 2024 Discontinued(R eorder (will not trigger notification to Pharmacy)) Tirzepatide (Mounjaro) 5 MG/0.5ML solution auto-injectorI ndications:Typ e 2 diabetes mellitus without complication, without long-term current use of insulin ([facility]),Obes ity, Class I, BMI 30-34.9 Inject 5 mg under the skin 1 (one) time per week. 2 mL 3 06/10/19 25 2024 predniSONE (Deltasone) 20 MG tablet Take 2 tablets (40 mg) by mouth Once per day for 5 days. 10 tablet 07/01/19 25 2024 Active Problems Problem Noted Date Diagnosed Date [...] Encounters Date Type Department Care Team Description 07/25/2024 9:40 AM EDT Office Visit [facility] OPTOMETRY [address] [place] [address] 07/25/2024 Travel 07/18/2024 Telephone [facility] MEDICINE [address] [place] [address] NameFernandez MD Prior Authorization 06/30/2024 Orders Only [facility] [address] [place] [address] NameFernandez MD 06/23/2024 Telephone [facility] MED[facility] [address] [place] [address] Arturo Osborne MA september recalls 06/19/2024 Telephone [facility] [address] Fernandez Stafford MD Prior Authorization 06/09/2024 11:30 AM EDT Office Visit [facility] [place] [address] Fernandez Stafford MD Type 2 diabetes mellitus without complication, without long-term current use of insulin ([facility]) (Primary Dx); Obesity, Class I, BMI 30-34.9; Nummular dermatitis; Mild intermittent asthma with acute exacerbation; On statin therapy 06/09/2024 Travel 06/08/2024 Telephone [facility] [place] [address] Arturo Osborne MA chart prep 06/02/2024 Population Health Risk Score [facility] () Department [address] [place] [phone] Provider, Population Health Generic 05/17/2024 Telephone [facility] [place] [address] Fernandez Stafford MD Nurse Triage from Last 3 Months Immunizations Name Administration [...] 06/09/2024 11:48 AM EDT Plan of Treatment Upcoming Encounters Date Type Department Care Team (Late st Contact Info) Description 10/11/2024 4:00 PM EDT Office Visit [facility] MEDICINE [address] [place] [phone] Name, MD Fernandez [address] [place] [address] 10/27/2024 10:15 AM EDT Office Visit [facility] MEDICINE [address] [place] [phone] Martha Leung MD [address] [place] [address] [phone] Health Maintenance Due Date Last Done Comments [...] history exists Eye Exam 06/28/2024 06/29/2023, 06/29/2023 Diabetes: Hemoglobin A1C 08/23/2024 024, 12/22/2023, 09/20/2023, Additional history exists Depression Screening 12/21/2024 12/22/2023, 09/05/19 Tobacco Screening 06/09/2025 06/09/2024 Lipid Panel 06/20/2025 06/20/2024, 04/0 11/2023, 05/11/2022, Additional history exists Cervical Cancer Screening 12/30/2026 HPV/Cotest 12/30/2026 12/30/2021, [...] Procedure Name Priority Date/Time Associated Diagnosis Comments LIPID PANEL, STANDARD Routine 06/20/2024 8:35 AM EDT On statin therapy POCT GLUCOSE Routine 06/09/2024 11:54 AM EDT [...] Recently Relevant to Health Maintenance Results * (ABNORMAL) Lipid Panel, Standard (06/20/2024 8:35 AM EDT) Triglycerides 273(H) <150 mg/dL [facility] Comment:Desirable Triglyceri de: less than 150 mg/dLBorderline High Triglyceride 150-199 mg/dLHigh Triglyceride: 200-499 mg/dLVery High Triglyceride: greater than or equal to 5OO mg/dL Cholesterol 199 <200 mg/dL [facility] Comment:Desirable Cholestero l: less than 200 mg/dLBorderline High Cholesterol: 200-239 mg/dLHigh Cholesterol: greater than 239 mg/dL LDL Cholesterol Calculated 106(H) <100 mg/dL [facility] Comment:Desirable LDL: less than 100 mg/dLNear Optimal/Above Optimal LDL: 110- 129 mg/dLBorderline High LDL: 130-159 mg/dLHigh LDL: 160-189 mg/dLVery High LDL: greater than or equal to 190 mg/dL HDL Cholesterol 39(L) >40 mg/dL [facility] Comment:Desirable HDL: great er than 40 mg/dL Note: This HDL assay may give artificially low results in patients with liver disease. Blood Venous blood specimen / Unknown 06/20/2024 8:35 AM EDT 06/20/2024 8:35 AM EDT us Fernandez Stafford MD LAB BLOOD ORDERABLES Final Resul t [facility] [address] [place] [phone] * POCT Glucose (06/09/2024 11:54 AM EDT) Glucose Blood, POC 198 60 - 200 mg/dL QC Media Lot # [id number] Lot# Expiration Date [id number] Blood Capillary blood specimen / Unknown 06/09/2024 11:54 AM EDT us Fernandez Stafford MD POINT OF CARE TEST ENTER/EDIT OR DERABLES Final Result * POCT HGB A1C (02/23/2024 10:22 AM EST) Hemoglobin A1C 5.4 4.0 - 6.0 % QC Media Lot # [id number] Lot# Expiration Date Blood 02/23/2024 10:2 2 AM EST Corie Lilly ELEVATOR CONSTRUCTOR POINT OF CARE TEST ENTER/EDIT ORDERABLES Final Result * Albumin, Random Urine W/Creatinine (06/29/2023 10:46 AM EDT) Creatinine, Urine 85.72 mg/dL [facility] Microalbumin Urine <5.0 mg/L [facility] Microalbum Creatinine Ratio Ur TNP <30 ug/mg cr [facility] Comment:Unable to calculate albumin/creatinine ratio due to lowmicroalbumin or creatinine result. Urine (Urine, Random) 06/29/2023 10:46 AM EDT 06/29/2023 11:48 AM EDT us Fernandez Stafford MD LAB URINE ORDERABLES Final Resul t [facility] [address] [place] [address] [phone] * Hm Diabetes Eye Exam (06/29/2023) Eye Exam Normal Normal us Fernandez Stafford MD HEALTH MAINTENANCE Final Result * BI Mammogram Screening Tomosynthesis Bilateral (06/18/2023 10:20 AM EDT) Anatomical Region Laterality Modality Breast Bilateral Mammography 06/18/2023 10:2 0 AM EDT Narrative 07/03/2023 10:18 PM EDT ? [facility] ? [address] ?[place] [address] ? Mammography Report ? Signed ? Patient: Toy,Edwina ?MR#: [id number] ?? [id number] ? : 1965 ?Acct:[id number] ? Age/Sex: 58 / F ?ADM Date: 03/29/24 ? Loc: HO.MAMMO ? Attending Dr: Saul Dobbins MD ? Ordering Physician: Saul Dobbins MD ?Results: 1Negativ ?? e ? Date of Service: 06/18/23 ?Follow Up: 1 Year From Orig ?? inal Mammogram ? Procedure(s): MM tomosynthesis screening BI ?? Accession Number(s): [id number] ? cc: Nydia,Fernandez BROWN; SauravbeSaul MD ? EXAMINATION: ?? MM SCREENING DIGITAL [...] ? 07/03/232213 ? DD/ ? TD/TT: ? Chore Tender: ? Procedure Note Juan Carlos, Rudy - 07/03/2023 [facility] [address] [place] [address] Dr. [place] [address] Mammography Report Signed Patient: Armani Yeager#: [id number] : 1965Acct:[id number] Age/Sex: 58 / FADM Date: 06/18/23 Loc: MIKALADanielMAMMO Attending Dr: Saul Dobbins MD Ordering Physician: Saul Dobbins MDResults: 1Negativ e Date of Service: 06/18/23Follow Up: 1 Year From Orig inal Mammogram Procedure(s): MM tomosynthesis screening BI Accession Number(s): [id number] cc: Name,Fernandez BROWN; Saul oDbbins MD EXAMINATION: MM SCREENING DIGITAL BREAST TOMOSYNTHESIS, [...] in OV> 07/03/23 2214 DD/ 1020 TD/TT: Chore Tender: [facility] External Provider IMG BI PROCEDURES Final Result * Pap Smear (05/17/2023 10:56 AM EST) 05/17/2023 10:5 6 AM EST 05/18/2023 12:15 PM EST [facility] - 05/28/2023 12:06 PM EST ----- ------- Name: Edwina Yeager ?Age/Sex: 58/F ? : 1965 Unit#: [id number] ?? Attend Dr: Saul Dobbins MD ?Re05/17/23 ?Status: DEP REF ? Location: HO.LNP ?Disch: ? ----- ------- SPEC : [id number] ? RECD: 05/18/23-5 ? STATUS: ??SOUT ? REQ NUM: [id number] ? NASREEN: 05/17/23-1056 ? SUBM DR: Saul [...] 66, 68) ?? HPV testing performed by [facility], [place], [place]. ??See reference laboratory ?? portion of the EMR for entire report. ?Clinical Information LMP: Postmenopausal Previous PAP test: 2021, Unknown findings ? Material Received ?? ThinPrep-Cervical Copies To: ?? Name,Fernandez BROWN ?? [address] [facility] ?? [place] [address] ?? [phone] ?? Saul Dobbins MD ?? [address] [place] [address] Dr. Moya [facility] ?? [place] [address] ?? [phone] ----- ------- Signed (signature on file) JIGAR Oro (ASCP) 05/28/23 1206 ? ----- ------- ? END OF REPORT ? us Generic External Data Provider LAB CYTOLOGY ORDE RABMARIA VICTORIA Final Result Performing Organization Address [facility]/ZIP Co de Phone Number [facility] [address] [place] [address] [phone] * HPV E6/E7 RFLX RAYMOND 16 18/45 (12/30/2021 3:27 PM EDT) Pathologist [facility] HPV 16 RNA TNP CONVERTED [employer] HPV 18/45 RNA TNP CONVER [employer] HPV E6 E7 ADD TNP CONVER [employer] HPV mRNA E6/E7 rflx Not Detected Not Detected CONVERTED [employer] Comment: Methodology: [facility] Provider-Mediated Amplification This assay detects E6/E7 viral messenger RNA (mRNA) from 14 high-risk HPV types (16,18,31,33,35,39,45,51,52,56,58,59,66,68). Cervical sources are required for HPV testing. If a vaginal source from a patient who has had a total hysterectomy with removal of cervix was submitted, please contact the testing laboratory for alternative testing options. For additional information, please refer to http://education.Proficiency/faq/TWS437q3 (This link if provided for information/ educational purposes only.) THIS TEST WAS PERFORMED AT: [facility] [address] [place], [place] ??[phone] YESSICA BURNETTE MD 12/30/2021 3:27 PM EDT Saul Dobbins MD HISTORICAL/NON ORDERABLE LABS Fi nal Result Performing Organization Address [facility]/ZIP Co de Phone Number CONVERTED [employer] * HEPATITIS C AB W/REFL TO HCV RNA, QN, PCR (10/30/2020 4:14 PM EDT) HEPATITIS C ANTIBODY NON-REACT SHWETA NON-REACT SHWETA [facility] INDEX 0.04 <1.00 [facility] Comment: ?? HCV antibody was non-reactive. There is no laboratory ?? evidence of HCV infection. ?? In most cases, no further action is required. However, if recent HCV exposure is suspected, a test for HCV RNA (test code 51845) is suggested. ?? For additional information please refer to http://education.Proficiency/faq/FED59h3 (This link is being provided for informational/ educational purposes only.) ?? 10/30/2020 4:14 PM EDT us Fernandez Name HISTORICAL/NON ORDERABLE LABS Fi nal Result [facility] [address] from Last 3 Months or Most Recently Relevant to Health Maintenance Insurance [facility] C3 HSN FULL Care Teams Mail Carrier Relationship Specialty Start Date End Date Name, MD Fernandez [address] [place] [phone] PCP - General Family Medicine 07/19/15
--- OUTSIDE RECORDS SUMMARY | 2024-07-25 12:40 | XMS_ITS | Encounter Summary ---
Author Organization [facility] Address [address] [place] [address] Care Team Providers Care Twisting Press Operator Name Role Phone Name, Fernandez BROWN Primary Care Provider Unavailabl e Reason for Referral * Specialist (Urgent) - Authorized/Booked Specialty Diagnoses / Procedures Referred By Contac t Referred To Contact General Surgery Diagnoses Abnormal mammogram Procedures REFERRAL TO GENERAL SURGERY Jose Cadena MD [address] [place] [address] Gen Surg/Brush [address] [place] [id number] Referral ID Status Reason Start Date Expiration Date V isits Requested Visits Authorized NOT REQUIRED Authorized/ Booked 12/18/2009 12/18/2010 1 1 Encounter Details Date Type Department Care Team Description 12/18/2009 Orders Only Adult Medicine B - [address] [address] Jose Cadena MD Abnormal Mammogram (Primary Dx) [...] unspecified documented in this encounter Care Teams Twisting Press Operator Relationship Specialty Start Date End Date Name, MD Fernandez PCP - General 10/10/09 documented as of this encounter
--- OUTSIDE RECORDS SUMMARY | 2024-07-25 12:40 | XMS_ITS | Encounter Summary ---
Author Organization [facility] Address [address] [facility] 7t [place] [address] Care Team Providers Care Chemistry Laboratory Technician Name Role Phone Name, Fernandez BROWN Primary Care Provider [phone] Reason for Visit * Reason Onset Date Comments Prior Authorization 07/18/2024 Encounter Details Date Type Department Care Team ([facility] st Contact Info) Description 07/18/2024 Telephone [facility] [address] [place], [place] [phone] Name, MD Fernandez [address] [place] [address] Prior Authorization Social History Tobacco Use Types [...] encounter Miscellaneous Notes * Telephone Encounter - Wing Inge RN - 07/21/2024 11:10 AM EDT Tc to pt regarding need [place] [id number]. Unable to reach pt, left message to call back. * Telephone Encounter - Megan Dickinson - 07/20/2024 2:00 PM EDT Please see message below. Pt not prescribed Zepbound. Pt prescribed Mounjaro and PA was denied. Pt will need to schedule appt to discuss with provider. * Telephone Encounter - Naveen Tellez - 07/18/2024 12:58 PM EDT TC from pt requesting a PA for med Zepbound. Pt states that the name of the medication should be Zepbound but advertising copywriter doesn't see med in her chart. Contact pt at [phone] documented in this encounter Plan of Treatment Upcoming Encounters Date Type Department Care Team (Late st Contact Info) Description 10/11/2024 4:00 PM EDT Office Visit [facility] [address] [place] [address] Name, MD Fernandez [address] [place] [address] 10/27/2024 10:15 AM EDT Office Visit [facility] [address] [place] [address] Martha Leung MD [address] [place] [address] documented as of this encounter Visit Diagnoses Not on filedocumented in this encounter Additional Health Concerns Assessment Noted Time PHQ-9 Depression Total Score: 5 09/05/19 23 10:02 AM EDT documented as of this encounter Care Teams Chemistry Laboratory Technician Relationship Specialty Start Date End Date Name, MD Fernandez [address] [place] [address] PCP - General Family Medicine 07/19/15 documented as of this encounter
--- OUTSIDE RECORDS SUMMARY | 2024-07-25 12:40 | XMS_ITS | Encounter Summary ---
Author Organization [facility] Address [address] [place] [address] Care Team Providers Care Search Marketing Analyst Name Role Phone Fernandez Stafford MD Primary Care Provider Unavailabl e Encounter Details Date Type Department Care Team Description 11/08/2011 Refill Adult Medicine [address] [address] NameFernandez MD Social History Tobacco Use Types Packs/Day [...] on filedocumented in this encounter Care Teams Search Marketing Analyst Relationship Specialty Start Date End Date Fernandez Stafford MD PCP - General 10/10/09 documented as of this encounter
--- OUTSIDE RECORDS SUMMARY | 2024-07-25 12:40 | XMS_ITS | Encounter Summary ---
Author Organization [facility] Address [address] [place] [address] Care Team Providers Care Product Ambassador Name Role Phone Name, Fernandez BROWN Primary Care Provider Unavailabl e Encounter Details Date Type Department Care Team Description 04/11/2010 Manager Employee Relations Report Medical Records [address] [place] [address] Kylah Roland NP Social History Tobacco Use [...] on filedocumented in this encounter Care Teams Product Ambassador Relationship Specialty Start Date End Date Name, MD Fernandez PCP - General 10/10/09 documented as of this encounter
--- OUTSIDE RECORDS SUMMARY | 2024-07-25 12:40 | XMS_ITS | Encounter Summary ---
Author Organization [employer] [facility] Address [address] [facility] 7t [place] [address] Care Team Providers Care Regional Sales Manager Name Role Phone Name, Fernandez BROWN Primary Care Provider [phone] Encounter Details Date Type Department Care Team (Late st Contact Info) Description 04/14/2022 Orders Only [facility] [address] [place] [address] Ada Concepcion LPN Social History Tobacco Use [...] Description 10/11/2024 4:00 PM EDT Office Visit [facility] [address] [place] [phone] Name, MD Fernandez [address] [place] [address] 10/27/2024 10:15 AM EDT Office Visit [facility] [address] [place] [address] Martha Leung MD [address] [place] [address] [phone] documented as of this encounter Visit Diagnoses Not on filedocumented in this encounter Care Teams Regional Sales Manager Relationship Specialty Start Date End Date Name, MD Fernandez [address] [place] [address] PCP - General Family Medicine 07/19/15 documented as of this encounter
--- OUTSIDE RECORDS SUMMARY | 2024-07-25 12:40 | XMS_ITS | Encounter Summary ---
Author Organization [facility] Address [address] [place] [address] Care Team Providers Care Interior Design Assistant Name Role Phone Name, Fernandez BROWN Primary Care Provider Unavailabl e Encounter Details Date Type Department Care Team Description 10/02/2010 Judicial Assistant Report Medical Records [address] [place] [address] Kylah Roland NP Social History Tobacco Use [...] on filedocumented in this encounter Care Teams Interior Design Assistant Relationship Specialty Start Date End Date Name, MD Fernandez PCP - General 10/10/09 documented as of this encounter
--- OUTSIDE RECORDS SUMMARY | 2024-07-25 12:40 | XMS_ITS | Encounter Summary ---
Author Organization [facility] Address [address] [place] [address] Care Team Providers Care City Editor Name Role Phone Name, Fernandez BROWN Primary Care Provider Unavailabl e Encounter Details Date Type Department Care Team Description 12/10/2014 Release of Information Medical Records [address] [place] [id number] Abstract, Provider Social History Tobacco Use Types [...] on filedocumented in this encounter Care Teams City Editor Relationship Specialty Start Date End Date Name, MD Fernandez PCP - General 10/10/09 documented as of this encounter
--- OUTSIDE RECORDS SUMMARY | 2024-07-25 12:40 | XMS_ITS | Clinical Summary ---
Author Organization [employer] [facility] Address [address] [place] [address] Care Team Providers Care Tower Excavator Operator Name Role Phone Name, Fernandez BROWN Primary Care Provider [phone] Surgical History Surgery Date Site/Laterality Comments SECTION PROCEDURE: HISTORICAL EXCISION BENIGN SKIN LESION TRUNK / ARM / LEG -[id number] PROCEDURE: ND EXCISION TUMOR SOFT TISSUE BACK/FLANK SUBQ <3CM; COMMENT: below right axilla OTHER SURGICAL HISTORY PROCEDURE: ---- OTHER ----; COMMENT: sleeve gastrectomy Medical History Medical History Date Comments Seizures (CMS/HCC V24, CMS/HCC V28) DX:Seizures ([facility]) Asthma, mild persistent DX:Asthm a, [...] age to complete this topic Care Teams Tower Excavator Operator Relationship Specialty Start Date End Date Name, MD Fernandez [address] [place], [place] PCP - General 10/10/09
--- OUTSIDE RECORDS SUMMARY | 2024-07-25 12:40 | XMS_ITS | Encounter Summary ---
Author Organization [facility] [facility] Address [address] [facility] 7t [place] [address] Care Team Providers Care Intermodal Customer Service Name Role Phone Name, Fernandez BROWN Primary Care Provider [phone] Encounter Details Date Type Department Care Team (Latest Contact Info) Description 09/09/2018 Abstract [facility] CONVERSIONS Dental, Provider, DDS Social History [...] Upcoming Encounters Date Type Department Care Team ( st Contact Info) Description 10/11/2024 4:00 PM EDT Office Visit [facility] MEDICINE [address] [place] [phone] Name, MD Fernandez [address] [place] [address] 10/27/2024 10:15 AM EDT Office Visit [facility] MEDICINE [address] [place] [phone] Martha Leung MD [address] [place] [address] documented as of this encounter Visit Diagnoses Not on filedocumented in this encounter Care Teams Intermodal Customer Service Relationship Specialty Start Date End Date Name, MD Fernandez [address] [place] [address] PCP - General Family Medicine 07/19/15 documented as of this encounter
--- OUTSIDE RECORDS SUMMARY | 2024-07-25 12:40 | XMS_ITS | Encounter Summary ---
Author Organization [employer] [facility] Address [address] [facility] 7t [place] [address] Care Team Providers Care Steward/Stewardess Deck Name Role Phone Name, Fernandez BROWN Primary Care Provider [phone] Reason for Visit * Reason Comments Med Refill Encounter Details Date Type Department Care Team ([facility] st Contact Info) Description 01/22/2023 Refill [facility] [address] [place], [place] [phone] Abigail Sullivan MD [address] [place], [place] [phone] Hypertension, unspecified type Social History Tobacco Use [...] Description 10/11/2024 4:00 PM EDT Office Visit [facility] MEDICINE [address] [place] [phone] Fernandez Stafford MD [address] [place] [phone] 10/27/2024 10:15 AM EDT Office Visit [facility] [address] [place] [phone] Martha Leung MD [address] [place] [address] documented as of this encounter Visit Diagnoses Diagnosis Hypertension, unspecified type documented in this encounter Additional Health Concerns Assessment Noted Time PHQ-9 Depression Total Score: 5 09/05/19 23 10:02 AM EDT documented as of this encounter Care Teams Steward/Stewardess Deck Relationship Specialty Start Date End Date NameFernandez MD [address] [place] [phone] PCP - General Family Medicine 07/19/15 documented as of this encounter
--- OUTSIDE RECORDS SUMMARY | 2024-07-25 12:40 | XMS_ITS | Encounter Summary ---
Author Organization [employer] Address [address] [facility] [facility] [address] 7t [place] [address] Care Team Providers Care Admissions Dean Name Role Phone Name, Fernandez BROWN Primary Care Provider Encounter Details Date Type Department Care Team (Latest Contact Info) Description 07/25/2024 Travel Social History Tobacco Use Types Packs/Day Years [...] Description 10/11/2024 4:00 PM EDT Office Visit [facility] MEDICINE [address] [place] [phone] Name, MD Fernandez [address] [place] [phone] 10/27/2024 10:15 AM EDT Office Visit [facility] [address] [place] [phone] Martha Leung MD [address] [place] [phone] documented as of this encounter Visit Diagnoses Not on filedocumented in this encounter Additional Health Concerns Assessment Noted Time PHQ-9 Depression Total Score: 5 09/05/19 23 10:02 AM EDT documented as of this encounter Care Teams Admissions Dean Relationship Specialty Start Date End Date NameFernandez MD [address] [place] [phone] PCP - General Family Medicine 07/19/15 documented as of this encounter
--- OUTSIDE RECORDS SUMMARY | 2024-07-25 12:40 | XMS_ITS | Clinical Summary ---
Author Organization [facility] Address [address] [place] [address] Care Team Providers Care Data Integrity Consultant Name Role Phone Unavailable Primary Care Provider [...] (2 - Td or Tdap) 02/26/2020 02/25/2010 [id number] ( season) 2023 12/01/2020, 06/30/2020, 06/09/2020 Imm-Influenza [...] Vaginal Pap Discontinued Vul[facility]oscopy Discontinued [facility]
--- OUTSIDE RECORDS SUMMARY | 2024-07-25 12:40 | XMS_ITS | Encounter Summary ---
Author Organization [facility] Address [address] [facility] 7t [place] [address] Care Team Providers Care Environmental Engineer Scientist Name Role Phone Name, Fernandez BROWN Primary Care Provider [phone] Reason for Visit * Reason Onset Date Comments Appointment Request 04/17/2022 Encounter Details Date Type Department Care Team (Late st Contact Info) Description 04/17/[address] [phone] Name, MD Fernandez [address] [place] [address] Appointment Request Social History Tobacco Use Types [...] PM EDT Office Visit [facility] MEDIC[facility] [address] [place] [address] [phone] Name, MD Fernandez [address] [place] [phone] 10/27/2024 10:15 AM EDT Office Visit [facility] [address] [place] [address] Martha Leung MD [address] [place] [address] documented as of this encounter Visit Diagnoses Not on filedocumented in this encounter Care Teams Environmental Engineer Scientist Relationship Specialty Start Date End Date Name, MD Fernandez [address] [place] [address] PCP - General Family Medicine 07/19/15 documented as of this encounter
--- OUTSIDE RECORDS SUMMARY | 2024-07-25 12:40 | XMS_ITS | Encounter Summary ---
Author Organization [employer] Address [address] [facility] 7t [place] [address] Care Team Providers Care Fugitive Investigator Name Role Phone Name, Fernandez BROWN Primary Care Provider [phone] Reason for Visit * Reason Onset Date Comments Med Refill 10/08/2023 Encounter Details Date Type Department Care Team ([facility] st Contact Info) Description 10/08/2023 Refill [facility] [address] [place], [place] [phone] Name, MD Fernandez [address] [place] [address] Social History Tobacco Use Types Packs/Day Years [...] Description 10/11/2024 4:00 PM EDT Office Visit [facility] MED[facility] [address] [place] [phone] Fernandez Stafford MD [address] [place] [address] 10/27/2024 10:15 AM EDT Office Visit [facility] [address] [place] [address] Martha Leung MD [address] [place] [phone] documented as of this encounter Visit Diagnoses Not on filedocumented in this encounter Additional Health Concerns Assessment Noted Time PHQ-9 Depression Total Score: 5 09/05/19 23 10:02 AM EDT documented as of this encounter Care Teams Fugitive Investigator Relationship Specialty Start Date End Date NameFernandez MD [address] [place] [address] PCP - General Family Medicine 07/19/15 documented as of this encounter
--- OUTSIDE RECORDS SUMMARY | 2024-07-25 12:40 | XMS_ITS | Encounter Summary ---
Author Organization [employer] Address [address] 7[address] [place] [address] Care Team Providers Care Fruit Packer Name Role Phone Name, Fernandez BROWN Primary Care Provider [phone] Encounter Details Date Type Department Care Team ([facility] st Contact Info) Description 07/25/2024 9:40 AM EDT Office Visit [facility] [address] [place] [address] Social History Tobacco Use Types Packs/Day Years [...] Description 10/11/2024 4:00 PM EDT Office Visit [facility] MEDICINE [address] [place] [phone] Name, MD Fernandez [address] [place] [address] 10/27/2024 10:15 AM EDT Office Visit [facility] MEDICINE [address] [place] [address] Martha Leung MD [address] [place] [address] documented as of this encounter Visit Diagnoses Not on filedocumented in this encounter Additional Health Concerns Assessment Noted Time PHQ-9 Depression Total Score: 5 09/05/19 23 10:02 AM EDT documented as of this encounter Care Teams Fruit Packer Relationship Specialty Start Date End Date NameFernandez MD [address] [place] [address] PCP - General Family Medicine 07/19/15 documented as of this encounter
--- OUTSIDE RECORDS SUMMARY | 2024-07-25 12:40 | XMS_ITS | Encounter Summary ---
Author Organization [employer] [facility] Address [address] [facility] 7t [place] [address] Care Team Providers Care Automobile Radio Repairer Name Role Phone Name, Fernandez BROWN Primary Care Provider [phone] Encounter Details Date Type Department Care Team (Late Contact Info) Description 12/15/2022 Orders Only [address] [address] Provider, MD Lizette Social History Tobacco [...] Description 10/11/2024 4:00 PM EDT Office Visit [facility] MEDICINE [address] [place] [address] [phone] Name, MD Fernandez [address] [place] [address] 10/27/2024 10:15 AM EDT Office Visit [facility] [address] [place] [address] [phone] Martha Leung MD [address] [place] [address] documented as of this encounter Procedures Procedure [...] documented as of this encounter Care Teams Automobile Radio Repairer Relationship Specialty Start Date End Date Name, MD Fernandez [address] [place] [address] PCP - General Family Medicine 07/19/15 documented as of this encounter
--- OUTSIDE RECORDS SUMMARY | 2024-07-25 12:40 | XMS_ITS | Encounter Summary ---
Author Organization [facility] Address [address] [place] [address] Care Team Providers Care Language Translator Name Role Phone Name, Fernandez BROWN Primary Care Provider Unavailabl e Encounter Details Date Type Department Care Team Description 04/11/2014 Release of Information Medical Records [address] [place] [phone] Abstract, Provider Social History Tobacco Use Types [...] on filedocumented in this encounter Care Teams Language Translator Relationship Specialty Start Date End Date Name, MD Fernandez PCP - General 10/10/09 documented as of this encounter
[2024-08-02 10:36] LABS: HPV Genotype 16 Negative (Negative); HPV Genotype 18 Negative (Negative); HPV High Risk Negative (Negative)
== END 2024-07-25 10:08 | disposition home or self-care (01) ==
LOC: HO.LNP 10:07
PROVIDERS: PCP Internal Medicine Geriatric Medicine; Visit Provider Obstetrics & Gynecology
DX: Z01.419 Encounter for gynecological examination (general) (routine) without abnormal findings (principal)
CPT/HCPCS: 87626; 88175; 99396; 99459